=== PATIENT | female | born 1985 | race Caucasian/White ===

== ENCOUNTER 2022-02-17 17:53 | Emergency (ER) | payer BC, SELFPAY ==
[2022-02-17 18:11] VITALS: BP 102/70; PULSE 90; RESP 18; TEMP 36.6; O2SAT 99; BMI 27.2
[2022-02-17] MEDS: 0.9 % SODIUM CHLORIDE 500 ML 500 ML IV (19:06)
--- NOTE | 2022-02-17 19:07 | ED.LOWEXIN ---
HPI - Extremity Injury (Lower) General Chief Complaint: Extremity Pain/Injury, Lower Stated Complaint: Left Foot Numbness, difficulty walking Time Seen by Provider: 02/17/22 18:25 History of Present Illness HPI Narrative: Myla is a 36year old female patient with known history of fibromyalgia who presents emergency department with complaints of left lower extremity weakness, paresthesia, and difficulty walking. The patient reports that she has had the symptoms for approximately 6 weeks. The patient states that she now has symptoms associated with the right lower extremity and bilateral upper extremities. Patient reports that she notes significant weakness, numbness, and decreased strength associated with position changes if she falls asleep with her arms crossed across her chest. Patient states that she has had previous evaluation treatment with group care worker. Patient reports that she has recently moved, and she felt her initial symptoms were secondary to overuse injury versus pinched nerve. After evaluation with a chiropractor, and they recommended further evaluation with primary care. Patient presented to the [facility] for further evaluation and treatment. She denies loss of control of bowel or bladder. She denies URI symptoms. She has not had any recent vaccinations. She denies recent changes in medications. The patient does report history of marijuana use. She denies changes in symptoms associated with substance use. She denies any trauma or injury. Related Data Home Medications Medication Instructions Recorded Confirmed albuterol sulfate 90 mcg/actuation 1 inh inhalation Q4-6H PRN 02/17/22 02/17/22 aerosol inhaler epinephrine 0.3 mg/0.3 mL 0.3 ml IM Q5-15M PRN 02/17/22 02/17/22 injection, auto-injector ondansetron HCl 4 mg tablet 4 mg PO Q6-8H PRN 02/17/22 02/17/22 pantoprazole 40 mg tablet,delayed 40 mg PO DAILY 02/17/22 02/17/22 release Allergies Allergy/AdvReac Type Severity Reaction Status Date / Time bee pollen Allergy Severe Difficulty Verified 02/17/22 21:21 Breathing blackberry Allergy Severe Hives Verified 02/17/22 21:21 peach Allergy Severe Hives Verified 02/17/22 21:21 pomegranate Allergy Severe Hives Verified 02/17/22 21:21 raspberry Allergy Severe Hives Verified 02/17/22 21:21 tree nut Allergy Severe Hives Verified 02/17/22 21:21 Review of Systems Const: Reports: malaise; Denies: fever, chills or fatigue ENMT: Denies: throat pain, ear pain, nasal discharge or nasal congestion Cardio: Denies: chest pain, palpitations, swelling of feet/ankles or shortness of breath with exertion Resp: Denies: shortness of breath or cough GI: Denies: abdominal pain, nausea, vomiting, diarrhea or constipation : Denies: painful urination, urinary frequency, urinary incontinence, vaginal bleeding, vaginal discharge or irregular period Musculo: Reports: back pain (Chronic per patient), limited range of motion, muscle cramps and muscle weakness Integ/Breast: Denies: itching, redness, skin pain, skin tenderness or skin swelling Neuro: Reports: numbness in extremities and weakness in extremities; Denies: headache, difficulty communicating thoughts, seizure-like activity or involuntary movements Endo: Denies: fatigue PFSH PFSH Social History Smoking Status: Never smoker Do you use any of these nicotine containing products: None How often do you have a drink containing alcohol: 2-3 times a week How often do you have six or more drinks on one occasion: Never AUDIT-C Alcohol total score: 3 Non-prescribed substance use: marijuana (any form) Non-prescribed substance use details: delta 10, delta 8 service: No Exam Const: Vital Signs, click to edit/add: Vital Signs - 24 hr 02/17/22 18:11 02/17/22 21:56 Temperature 97.8 F Pulse Rate [Pulse Oximeter] 90 74 Respiratory Rate 18 18 Blood Pressure [Ri ght Upper Arm] 102/70 110/73 Pulse Oximetry 99 99 Oxygen Delivery Me thod Room Air Room Air Documenting provider has reviewed patient's vital signs: yes Common normals: no apparent distress, oriented x3, no limitations, healthy appearing, alert and well nourished General appearance: cooperative, comfortable and well developed; not in distress Orientation/consciousness: Yes awake, Yes oriented to person and Yes oriented to place HENMT: Common normals: normocephalic, head/scalp atraumatic and hearing grossly normal bilaterally Head and scalp: normocephalic and atraumatic Face and sinus: normal facial exam (within limits of masking) Eye: Common normals: PERRL and EOMs intact bilaterally General eye: normal appearance of both eyes Alignment: alignment normal Pupil: PERRL Neck & C-Spine: Common normals: full ROM, no lymphadenopathy and supple Cervical spine: cervical ROM normal; no cervical spine tenderness, no paracervical muscle spasm and Lhermitte's sign negative Resp: Common normals: normal respiratory effort, no retractions, no use of accessory muscles and clear to auscultation bilaterally Effort & inspection: able to speak in complete sentences Auscultation: clear to auscultation bilaterally Cardio: Common normals: regular rate, regular rhythm, S1 normal heart sound and S2 normal heart sound Rate: regular rate Rhythm: regular rhythm Heart sounds: S1 normal and S2 normal GI: Common normals: Normal to inspection, nondistended, normoactive bowel sounds present, soft to palpation and non-tender Palpation: soft Back & Pelvis: Common normals: thoracic and lumbar spine normal to inspection and thoraco-lumbar ROM normal Extremity: Common normals: normal to inspection, full ROM and no clubbing, cyanosis or edema Right lower extremity: lower leg Right lower leg: neurovascular exam (Decreased sensation noted in the L5, S1-2) and special tests Right lower leg special tests: Lino's sign: Negative Neuro: Common normals: oriented x3, moves all extremities, no focal motor deficits and no sensory deficits noted Sensorium/orientation: awake, alert, oriented to person and oriented to place Speech: speech normal Gait (neuro): antalgic Motor exam: strength 5/5 throughout, no fasciculations, no movement abnormalities noted and strength abnormal left distal lower extremity 1 / 5 flexion 1 / 5 and extension 2 / 5 Psych: Common normals: mental status grossly normal, thought process normal, speech normal and activity/motor behavior normal Appearance: grossly normal Attitude: calm Activity/motor behavior: appropriate eye contact Speech: normal speech Thought process: normal thought process Thought content: normal thought content Attention/concentration: attention grossly intact Memory/cognition: memory grossly intact Insight: insight good Judgement: judgment good Skin: Common normals: no rashes or lesions noted General skin exam: no rashes or lesions noted Course Course Hospital Course: Myla presented to the emergency department for further evaluation and treatment of left lower extremity paresthesias and weakness present for approximately 6 weeks. The patient was advised by her chiropractor to follow-up with primary care, however she chose to present to the Urgent Care which referred her to the emergency department. Laboratory studies, imaging, and consultation was performed as noted. She has rested comfortably while she was in the emergency department. Her vital signs have remained stable. See additional note for disposition and plan. Consultations Consultation #1: Dr Seymour called for consultation. Time: 19:07 Vital Signs Vital signs: Initial Vital Signs Temperature 97.8 F 02/17/22 18:11 Temperature Source Temporal Artery Scan 02/17/22 18:11 Pulse Rate 90 02/17/22 18:11 Respiratory Rate 18 02/17/22 18:11 Blood Pressure 102/70 02/17/22 18:11 Blood Pressure Mean 80 02/17/22 18:11 Blood Pressure Position Sitting 02/17/22 18:11 Pulse Oximetry 99 02/17/22 18:11 Oxygen Delivery Method 02/17/22 18:11 Vital Signs Temperature 97.8 F 02/17/22 18:11 Pulse Rate 90 02/17/22 18:11 Respiratory Rate 18 02/17/22 18:11 Blood Pressure 102/70 02/17/22 18:11 Pulse Oximetry 99 02/17/22 18:11 Oxygen Delivery Method 02/17/22 18:11 Temperature 97.8 F 02/17/22 18:11 Pulse Rate 74 02/17/22 21:56 Respiratory Rate 18 02/17/22 21:56 Blood Pressure 110/73 02/17/22 21:56 Pulse Oximetry 99 02/17/22 21:56 Oxygen Delivery Method 02/17/22 21:56 MDM - Extremity Injury (Lower) MDM Narrative Medical decision making narrative: Differential diagnoses considered include: sprain and strain, contusion, nerve root entrapment, radiculopathy, muscle spasm, dislocation, and fracture. Other differentials include ligament or tendon injury/damage, neuromuscular disease, vascular or nerve damage. Lab Data Attestation: I reviewed the patient's lab results. Labs: Lab Results 02/17/22 02/17/22 02/17/22 Range/Units 19:05 19:05 19:05 WBC 9.50 (4.50-11.00) K/uL RBC 4.57 (4.00-5.20) m/uL Hgb 14.0 (12.0-16.0) gm/dL Hct 42.2 (33.0-51.0) % MCV 92 (80-100) fL MCH 31 (26-34) pg MCHC 33 (32-36) gm/dL RDW Coeff of Oscar 12.7 (11.5-15.5) % Plt Count 286 (140-440) K/uL Neut % (Auto) 73.6 H (42.0-72.0) % Lymph % (Auto) 15.6 L (20-44) % Armstrong % (Auto) 8.0 (0.0-11.0) % Eos % (Auto) 2.4 (0.0-7.0) % Baso % (Auto) 0.3 (0.0-3.0) % Neut # (Auto) 7.00 (1.7-7.0) K/uL Lymph # (Auto) 1.50 (0.90-2.90) K/uL Armstrong # (Auto) 0.80 (0.00-0.90) K/UL Eos # (Auto) 0.23 (0.00-0.50) K/uL Baso # (Auto) 0.03 (0.00-0.30) K/uL Abs Immat Gran (auto) 0.01 (0.00-0.30) K/uL Sodium 140 (135-149) mmol/L Potassium 3.9 (3.6-5.1) mmol/L Chloride 106 (96-114) mmol/L Carbon Dioxide 24 (20-32) mmol/L BUN 12 (5-24) mg/dL Creatinine 0.4 L (0.5-1.5) mg/dL Estimated Creat Clear 207.10 Estimated GFR 133 ml/min Glucose 86 (60-115) mg/dL Calcium 9.3 (8.4-10.6) mg/dL Magnesium 2.1 (1.5-2.6) mg/dL Total Bilirubin 0.3 (0.1-1.5) mg/dL AST 23 (12-35) U/L ALT 18 (4-35) U/L Alkaline Phosphatase 77 (40-150) U/L Total Creatine Kinase (41-117) U/L Total Protein 7.6 (6.0-8.3) g/dL Albumin 4.5 (3.3-5.0) g/dL Vitamin B12 337 (243-894) pg/mL 25-OH Vitamin D Total 51 (30-80) ng/mL Urine Color (Yellow) Urine Appearance (Clear) Urine pH (5.0-8.5) Ur Specific [place] (1.000-1.030) Urine Protein (Negative) Urine Glucose (UA) (Negative) Urine Ketones (Negative) Urine Blood (Negative) Urine Nitrite (Negative) Urine Bilirubin (Negative) Urine Urobilinogen (0.2-1.0) Ur Leukocyte Esterase (Negative) Urine Opiates Screen (Negative) Ur Oxycodone Screen (Negative) Urine Methadone Screen (Negative) Ur Propoxyphene Screen (Negative) Ur Barbiturates Screen (Negative) U Tricyclic Antidepress (Negative) Ur Phencyclidine Scrn (Negative) Ur Amphetamines Screen (Negative) U Methamphetamines Scrn (Negative) U Benzodiazepines Scrn (Negative) Urine Cocaine Screen (Negative) U Marijuana (THC) Screen (Negative) Ur Drug Screen Comment 02/17/22 02/17/22 02/17/22 Range/Units 19:05 19:55 19:55 WBC (4.50-11.00) K/uL RBC (4.00-5.20) m/uL Hgb (12.0-16.0) gm/dL Hct (33.0-51.0) % MCV (80-100) fL MCH (26-34) pg MCHC (32-36) gm/dL RDW Coeff of Oscar (11.5-15.5) % Plt Count (140-440) K/uL Neut % (Auto) (42.0-72.0) % Lymph % (Auto) (20-44) % Armstrong % (Auto) (0.0-11.0) % Eos % (Auto) (0.0-7.0) % Baso % (Auto) (0.0-3.0) % Neut # (Auto) (1.7-7.0) K/uL Lymph # (Auto) (0.90-2.90) K/uL Armstrong # (Auto) (0.00-0.90) K/UL Eos # (Auto) (0.00-0.50) K/uL Baso # (Auto) (0.00-0.30) K/uL Abs Immat Gran (auto) (0.00-0.30) K/uL Sodium (135-149) mmol/L Potassium (3.6-5.1) mmol/L Chloride (96-114) mmol/L Carbon Dioxide (20-32) mmol/L BUN (5-24) mg/dL Creatinine (0.5-1.5) mg/dL Estimated Creat Clear Estimated GFR ml/min Glucose (60-115) mg/dL Calcium (8.4-10.6) mg/dL Magnesium (1.5-2.6) mg/dL Total Bilirubin (0.1-1.5) mg/dL AST (12-35) U/L ALT (4-35) U/L Alkaline Phosphatase (40-150) U/L Total Creatine Kinase 38 L (41-117) U/L Total Protein (6.0-8.3) g/dL Albumin (3.3-5.0) g/dL Vitamin B12 (243-894) pg/mL 25-OH Vitamin D Total (30-80) ng/mL Urine Color Yellow (Yellow) Urine Appearance Clear (Clear) Urine pH 5.5 (5.0-8.5) Ur Specific [place] 1.020 (1.000-1.030) Urine Protein Negative (Negative) Urine Glucose (UA) Negative (Negative) Urine Ketones Negative (Negative) Urine Blood Negative (Negative) Urine Nitrite Negative (Negative) Urine Bilirubin Negative (Negative) Urine Urobilinogen 0.2 (0.2-1.0) Ur Leukocyte Esterase Negative (Negative) Urine Opiates Screen Negative (Negative) Ur Oxycodone Screen Negative (Negative) Urine Methadone Screen Negative (Negative) Ur Propoxyphene Screen Negative (Negative) Ur Barbiturates Screen Negative (Negative) U Tricyclic Antidepress Negative (Negative) Ur Phencyclidine Scrn Negative (Negative) Ur Amphetamines Screen Negative (Negative) U Methamphetamines Scrn Negative (Negative) U Benzodiazepines Scrn Negative (Negative) Urine Cocaine Screen Negative (Negative) U Marijuana (THC) Screen POSITIVE A* (Negative) Ur Drug Screen Comment See Note Discharge Plan Discharge Clinical Impression: Paresthesia and pain of left extremity Patient Disposition: Home, Self-Care Condition: Stable Instructions: Paresthesia (ED) Additional Instructions: Thank you for choosing [facility] for your care today. Use RICE - rest, ice, compression, and elevation - as needed for symptom control. I recommend following up with your primary physician in 1-2wks if a significant improvement of symptoms is not noted. Continue routine activity as tolerated. You may consider topical medications including capsaicin or lidocaine patches to assist with symptom control. If new or worsening symptoms develop or you have any concerns in the meantime, please call your primary care clinic or return to the ER for re-evaluation. Activity Level: No Restrictions and Activity as Tolerated Discharge Diet: Regular Prescriptions: No Action pantoprazole 40 mg tablet,delayed release (DR/EC) 40 mg PO DAILY ondansetron HCl 4 mg tablet 4 mg PO Q6-8H PRN albuterol sulfate 90 mcg/actuation HFA aerosol inhaler 1 inh inhalation Q4-6H PRN epinephrine 0.3 mg/0.3 mL auto-injector 0.3 ml IM Q5-15M PRN Rx Instructions: do not exceed 3 doses per episode Follow Up/Referrals: Provider,Not a Local [Primary Care Provider] - Stand Alone Forms: [facility] Info Instructions
[2022-02-17 19:17] LABS: Basophils Absolute Auto 0.03 K/uL (0.00-0.30); Basophils Percent Auto 0.3 % (0.0-3.0); Eosinophils Absolute Auto 0.23 K/uL (0.00-0.50); Eosinophils Percent Auto 2.4 % (0.0-7.0); Hematocrit 42.2 % (33.0-51.0); Immature Granulocytes Abs Auto 0.01 K/uL (0.00-0.30); Lymphocytes Percent Auto 15.6 % (20-44); Mean Corpuscular HGB Conc 33 gm/dL (32-36); Mean Corpuscular Hemoglobin 31 pg (26-34); Mean Corpuscular Volume 92 fL (80-100); Neutrophils Percent Auto 73.6 % (42.0-72.0); Platelet Count* 286 K/uL (140-440); RDW Coefficient of Variation % 12.7 % (11.5-15.5); Red Blood Count 4.57 m/uL (4.00-5.20)
--- NOTE | 2022-02-17 19:20 | CRLHL7_ITS ---
For Patients: As a result of the Century Cures Act, medical imaging exams and procedure reports are released immediately into your electronic medical record. You may view this report before your referring provider. If you have questions, please contact your health care provider. DATE: 02/17/2022. CLINICAL HISTORY: Paresthesias/weakness. TECHNIQUE: Multiplanar, multi-sequence MRI examination of the cervical spine was performed. Contrast: 20mL of Dotarem administered intravenously. COMPARISON: None available. FINDINGS: No acute fracture, traumatic malalignment, or acute ligamentous injury of the cervical spine. Vertebral body heights are maintained without evidence of compression deformity. The craniocervical junction is within normal limits. The cervical cord is normal in signal and morphology. Anatomic alignment of the cervical spine. No pathologic enhancement of the osseous structures or within the spinal canal. C2-3: No significant spinal canal stenosis or foraminal narrowing. C3-4: No significant spinal canal stenosis or foraminal narrowing. C4-5: Very mild disc bulge. No significant spinal canal stenosis or foraminal narrowing. C5-6: Right central/lateral recess disc protrusion indents the right lateral ventral thecal sac. No significant spinal canal stenosis or foraminal narrowing. C6-7: No significant spinal canal stenosis or foraminal narrowing. C7-T1: No significant spinal canal stenosis or foraminal narrowing. IMPRESSION: 1. Anatomic alignment of the cervical spine. 2. Normal appearance of the cervical cord. 3. At C5-6, right central/lateral recess disc protrusion and at C4-C5, very mild disc bulge. 4. No significant spinal canal stenosis or foraminal narrowing throughout the cervical spine. Dictated by Get Jones MD @ 02/17/2022 11:10:17 PM (Electronically Signed)
--- NOTE | 2022-02-17 19:20 | CRLHL7_ITS ---
For Patients: As a result of the Century Cures Act, medical imaging exams and procedure reports are released immediately into your electronic medical record. You may view this report before your referring provider. If you have questions, please contact your health care provider. DATE: 02/17/2022. CLINICAL HISTORY: Paresthesias; weakness. TECHNIQUE: Multiplanar, multi-sequence MRI examination of the lumbar spine was performed. Contrast: 20mL of Dotarem was administered intravenously. COMPARISON: None available. FINDINGS: No acute fracture, traumatic malalignment, or acute ligamentous injury involving the lumbar spine. Vertebral body heights are maintained without evidence of compression deformity. L4 vertebral body hemangioma. No evidence of aggressive osseous lesion. The conus medullaris is within normal limits. There is preservation of lumbar lordosis. No pathologic enhancement involving the osseous structures or the spinal canal. T12-L1: No significant spinal canal stenosis or foraminal narrowing. L1-2: No significant spinal canal stenosis or foraminal narrowing. L2-3: No significant spinal canal stenosis or foraminal narrowing. L3-4: No significant spinal canal stenosis or foraminal narrowing. L4-5: No significant spinal canal stenosis or foraminal narrowing. L5-S1: No significant spinal canal stenosis or foraminal narrowing. The visualized prevertebral soft tissues are unremarkable. IMPRESSION: Normal MRI of the lumbar spine. No evidence of significant spinal canal stenosis or foraminal narrowing. Dictated by Get Jones MD @ 02/17/2022 10:03:49 PM (Electronically Signed)
--- NOTE | 2022-02-17 19:20 | CRLHL7_ITS ---
For Patients: As a result of the Century Cures Act, medical imaging exams and procedure reports are released immediately into your electronic medical record. You may view this report before your referring provider. If you have questions, please contact your health care provider. DATE: 02/17/2022. CLINICAL HISTORY: Paresthesias/weakness. TECHNIQUE: Multiplanar, multi-sequence MRI examination of the thoracic spine was performed. Contrast: 20mL of Dotarem administered intravenously. COMPARISON: None available. FINDINGS: No acute fracture, traumatic malalignment, or acute ligamentous injury of the thoracic spine. Vertebral body heights are maintained. No evidence of aggressive osseous lesion. The thoracic cord is normal in signal and morphology. There is preservation of normal thoracic kyphosis. At T11-T12, there is mild anterior endplate osteophytosis. No evidence of pathologic enhancement involving the osseous structures of the spinal canal. No evidence of significant spinal canal stenosis or foraminal narrowing. The paravertebral soft tissues are within normal limits. IMPRESSION: Essentially normal MRI of the thoracic spine. Normal appearance of the thoracic cord and no evidence of significant spinal canal stenosis. Dictated by Get Jones MD @ 02/17/2022 10:08:28 PM (Electronically Signed)
[2022-02-17 19:25] LABS: Slide Review Reflex No
[2022-02-17 19:30] LABS: Albumin* 4.5 g/dL (3.3-5.0); Chloride* 106 mmol/L (96-114)
[2022-02-17 19:31] LABS: Potassium* 3.9 mmol/L (3.6-5.1); Sodium* 140 mmol/L (135-149)
[2022-02-17 19:33] LABS: Alkaline Phosphatase* 77 U/L (40-150); Aspartate Amino Transferase* 23 U/L (12-35); Bilirubin Total* 0.3 mg/dL (0.1-1.5); Blood Urea Nitrogen* 12 mg/dL (5-24); Carbon Dioxide* 24 mmol/L (20-32); Creatinine* 0.4 mg/dL (0.5-1.5); Estimated Glomerular Filt Rate 133 ml/min; Total Protein* 7.6 g/dL (6.0-8.3)
[2022-02-17 19:34] LABS: Calcium* 9.3 mg/dL (8.4-10.6); Glucose* 86 mg/dL (60-115); Magnesium* 2.1 mg/dL (1.5-2.6)
[2022-02-17 19:44] LABS: Creatine Kinase* 38 U/L (41-117)
[2022-02-17 19:49] LABS: Alanine Aminotransferase* 18 U/L (4-35)
[2022-02-17 20:02] LABS: Vitamin D 25 Hydroxy* 51 ng/mL (30-80)
[2022-02-17 20:12] LABS: Appearance Urine Clear (Clear); Bilirubin Urine Negative (Negative); Blood Urine Negative (Negative); Color Urine Yellow (Yellow); Glucose Urine Negative (Negative); Ketones Urine Negative (Negative); Leukocyte Esterase Urine Negative (Negative); Nitrite Urine Negative (Negative); Protein Urine Negative (Negative); Urobilinogen Urine 0.2 (0.2-1.0); pH Urine 5.5 (5.0-8.5)
[2022-02-17 20:13] LABS: Amphetamine Screen Urine Negative (Negative); Barbiturate Screen Urine Negative (Negative); Benzodiazepines Screen Urine Negative (Negative); Cocaine Screen Urine Negative (Negative); Methadone Screen Urine Negative (Negative); Methamphetamines Screen Urine Negative (Negative); Opiate Screen Urine Negative (Negative); Oxycodone Screen Urine Negative (Negative); Phencyclidine Screen Urine Negative (Negative); Tricyclic Antidepressant Urine Negative (Negative)
[2022-02-17 20:22] LABS: Vitamin B12* 337 pg/mL (243-894)
[2022-02-17 20:26] LABS: Cannabinoid Screen Urine POSITIVE (Negative)
[2022-02-17 21:56] VITALS: BP 110/73; PULSE 74; RESP 18; O2SAT 99
[2022-02-22 10:20] LABS: Vitamin B1, Whole Blood 90 nmol/L (70-180)
== END 2022-02-17 22:50 | disposition home or self-care (01) ==
PROVIDERS: Emergency Provider Family Medicine
DX: R20.0 Anesthesia of skin (principal); M79.605 Pain in left leg; M79.7 Fibromyalgia
CPT/HCPCS: 36415; 72156; 72157; 72158; 80053; 80306; 81003; 82306; 82525; 82550; 82607; 83735; 84425; 85025; 86618; 99284; 99285; A9575; J7120

== ENCOUNTER 2024-05-07 10:46 | Day surgery (SDC) | payer BC, SELFPAY ==
[2024-05-07 10:51] VITALS: BP 128/81; PULSE 65; RESP 16; TEMP 36.4; O2SAT 100; BMI 25.8
--- NOTE | 2024-05-07 11:09 | ED.ABDPAIN ---
HPI - Abdominal Pain General Time Seen by Provider: 11:09 Date Seen: 05/07/24 Chief Complaint: Abdominal Pain Stated Complaint: abdominal discomfort Time Seen by Provider: 05/07/24 11:08 Source: patient and RN notes reviewed Mode of arrival: ambulatory Limitations: no limitations History of Present Illness HPI narrative: This 38-year-old female is coming in with complaint of abdominal pain. Symptoms have been progressive over a a week or so. It is in the epigastric area, has started radiating out into her lower abdomen. She has had increased nausea, does of Zofran, took her last dose at 9:00 a.m. today. When she eats or drinks liquids, she states she can almost feel it hit her stomach and the pain will intensify. She has noted no change in bowel habits such as diarrhea or change in color or dark tarry stools. Her intake is diminished due to the symptoms. She has a history of eosinophilic esophagitis and takes Protonix for this, she will get nausea with her eosinophilic esophagitis but feels over the last year and half that that is been pretty stable. She will feel more esophageal or chest symptoms, states with that she will have nausea but also feels like food gets stuck in difficulty swallowing. She has a burning sensation in her chest with that. She had a gastric bypass in [place], she told me 2017, nurse's note states February of 2021. She believes it was a Rikki-en-Y gastric bypass. She believes her gallbladder is still in. She does not think that this is her gallbladder, before her bypass she states she had an episode where was maybe her gallbladder in felt different. No fevers or chills. She has noted that the pain in the epigastric area is worsening with movement now. She was at work this morning, had increasing pain with movement. Patient feels is unlikely that there is a chance for , we agreed on confirmation of status. Related Data Home Medications ?Medication ?Instructions ?Recorded ?Confirmed epinephrine 0.3 mg/0.3 mL 0.3 ml IM Q5-15M PRN 02/17/22 05/07/24 injection, auto-injector ondansetron HCl 4 mg tablet 4 mg PO Q6-8H PRN 02/17/22 05/07/24 pantoprazole 40 mg tablet,delayed 40 mg PO DAILY PRN 02/17/22 05/07/24 release gabapentin 100 mg capsule 100 mg PO TID PRN 08/06/22 05/07/24 buspirone 5 mg tablet 5 mg PO BID PRN 10/30/23 05/07/24 lorazepam 0.5 mg tablet 0.5 - 1 mg PO DAILY PRN 10/30/23 05/07/24 cetirizine 10 mg tablet (All Day 10 mg PO DAILY 05/07/24 05/07/24 Allergy (cetirizine)) fluticasone propionate 50 1 spray intranasal BID PRN 05/07/24 05/07/24 mcg/actuation nasal spray,suspension (24 Hour Allergy Relief) multivitamin (Daily Multi-Vitamin 1 tab PO DAILY 05/07/24 05/07/24 tablet) prazosin 1 mg capsule 1 mg PO HS PRN 05/07/24 05/07/24 sertraline 50 mg tablet 50 mg PO DAILY 05/07/24 05/07/24 trazodone 50 mg tablet 50 mg PO HS PRN 05/07/24 05/07/24 Previous Rx's ?Medication ?Instructions ?Recorded albuterol sulfate 90 mcg/actuation 2 puff inhalation Q6H PRN 04/25/23 aerosol inhaler shortness of breath or wheezing #6.7 grams Allergies Allergy/AdvReac Type Severity Reaction Status Date / Time bee pollen Allergy Severe Difficulty Verified 05/07/24 12:19 Breathing blackberry Allergy Severe Hives Verified 05/07/24 12:19 peach Allergy Severe Hives Verified 05/07/24 12:19 pomegranate Allergy Severe Hives Verified 05/07/24 12:19 raspberry Allergy Severe Hives Verified 05/07/24 12:19 tree nut Allergy Severe Hives Verified 05/07/24 12:19 Review of Systems Status of ROS Reports: 6 or more systems reviewed and unremarkable except as noted in History and below [facility] Medical History (Updated 05/07/24 @ 17:29 by Myla Pacheco MD) Anxiety ?F41.9 - Anxiety disorder, unspecified (ICD-10) Eosinophilic esophagitis ?K20.0 - Eosinophilic esophagitis (ICD-10) Surgical History (Updated 05/07/24 @ 17:30 by Myla Pacheco MD) H/O wisdom tooth extraction ?K08.409 - Partial loss of teeth, unspecified cause, unspecified class (ICD-10) S/P gastric bypass ?Z98.84 - Bariatric surgery status (ICD-10) Social History What is your current living situation?: I presently have a place to live Problems where you live: no known problems Problems where you live details: N/A In the past 12 months, utilities in danger of being shut off: no In the past 12 mos, have been you worried that your food would run out before you had money to buy more?: never true In the past 12 mos, the food you bought just didn't last and you didn't have money to buy more?: never true Smoking Status: Current some day smoker What tobacco products do you use: cigarettes Do you use any of these nicotine containing products: None How often do you have a drink containing alcohol: 2-4 times a month Alcohol type: beer, wine and hard liquor How many standard drinks containing alcohol do you have on a typical day: 1 or 2 How often do you have six or more drinks on one occasion: Less than monthly AUDIT-C Alcohol total score: 3 Non-prescribed substance use: marijuana (any form) Non-prescribed substance use details: sometimes uses marijuana, not daily Caffeine: Yes How often does anyone, including family, friends and others, physically hurt you: never How often does anyone, including family, friends and others, insult or talk down to you: never How often does anyone, including family, friends and others, threaten you with harm: never How often does anyone, including family, friends and others, scream or curse at you: never service: No Exam Const: Vital Signs, click to edit/add: Vital Signs - 24 hr 05/07/24 10:51 05/07/24 13:21 Temperature 97.5 F L 97.3 F L Pulse Rate [Pulse Oximeter] 65 51 L Respiratory Rate 16 18 Blood Pressure [Ri ght Upper Arm] 128/81 110/69 Pulse Oximetry 100 99 Oxygen Delivery Me thod Room Air Room Air This 38-year-old female is alert, interactive, no apparent distress. She appears to be comfortable, lying in the bed in exam room 6. Pupils equal round, conjugate gaze, sclera clear. Symmetrical facial function, speech is normal, speaking in complete sentences. Lungs clear, no tachypnea, wheeze or crackles. CV regular rate and rhythm, no murmur, normal S1-S2, no S3-S4. Abdomen is not distended, bowel sounds are present, no rebound or guarding, no organomegaly, no masses. She states where she has the pain is in the epigastric area but she really is not significantly tender on examination at this time. Skin visualized without rash. Patient was ambulatory into the ED of her own accord. Documenting provider has reviewed patient's vital signs: yes Course Course ED Course: Patient's pain is a bit atypical that it is progressing and worsening with movement. Will discuss with general surgery/Radiology as far as imaging recommendations, think that she should probably have some type of oral contrast if we are going to image to get better visualization of her gastric bypass and possible complications. She will get full complement of labs, will do urinalysis as well and confirm negative status. This could be biliary disease, complication of her gastric bypass such as ulceration along the anastomosis, possible breakdown of the anastomosis, other complications of gastric bypass, possibly some pancreatitis. Will undertake full complement of labs and need to consider imaging. Reevaluation(s) Time of Reevaluation #1: 13:20 Reevaluation #1: Reviewed patient's CT with her. The gallbladder is distended but there is no evidence on CT of cholecystitis. Her labs are all reassuring we normal, normal lipase, normal liver functions. She would like to proceed with ultrasound of her gallbladder. She does understand that if this is normal, does not necessarily rule out biliary dysfunction. If her gallbladder ultrasound is not showing anything concerning, she understands that she may need to follow up in clinic and get scheduled for further potential test such as HIDA scan to look for biliary dysfunction and consideration of an EGD. At this time, there is no surgical abdomen, no definite identifiable pathology. Time of Reevaluation #2: 13:44 Reevaluation #2: Have reviewed with patient that her ultrasound per the pickling solution maker is showing multiple mobile gallstones. She certainly has some features that seem consistent with gallstone pathology but the physical symptoms of pain increasing with activity, increased pain with lifting do not seem to be consistent with that. She had a small hiatal hernia on her CT which we did review. She states she does not think she has had that before. Reviewed with her that that really would not be consistent with something causing symptoms of this nature from my experience. Typically would cause more symptoms like heartburn or regurgitant issues. Most people do not have significant problems with a small hiatal hernia. I reviewed with her it is essentially a small portion the stomach going through the diaphragm. I reviewed with her my conversation with the general surgeon Dr. Pacheco. Dr. Cruz does think that if she is symptomatic as I am explaining, she would do cholecystectomy, patient could stay overnight. Alternatively, if patient wants to try outpatient management, can send her with pain meds, bland diet, plenty of liquids and see how she does. Patient and I did definitely discuss that there are some features in her history that may not go with gallbladder pathology but her ultrasound is showing multiple mobile gallstones. She needs some time to make some phone calls and consider her options. Time of Reevaluation #3: 14:13 Reevaluation #3: Have reviewed with the patient the formal ultrasound report. She really is not even tolerating liquids anymore at home without pain. We will have her stay. She would like to have her gallbladder out. I have subsequently talked to Dr. Pacheco whom would like the hospitalist to follow, initiate Carafate and PPI, I did order 40 mg IV Protonix at that point. She wants to see if that will help her symptoms at all. Plan will be for cholecystectomy tomorrow afternoon otherwise. I did subsequently speak with hospitalist Jada Rae whom accepts. Consultations Consultation #1: Have reviewed with general surgery as well as our radiologist. Plan will be to give her a water-based oral contrast with IV contrast so that the stomach remnant or gastric bypass sites can be sufficiently visualized. May need to consider ultrasound based on labs or if there is any evidence of biliary issues on her CT. Time: 11:34 Vital Signs Vital signs: Initial Vital Signs Temperature 97.5 F L 05/07/24 10:51 Temperature Source Temporal Artery Scan 05/07/24 10:51 Pulse Rate 65 05/07/24 10:51 Respiratory Rate 16 05/07/24 10:51 Blood Pressure 128/81 05/07/24 10:51 Blood Pressure Mean 96 05/07/24 10:51 Blood Pressure Position Sitting 05/07/24 10:51 Pulse Oximetry 100 05/07/24 10:51 Oxygen Delivery Method Room Air 05/07/24 10:51 Vital Signs Temperature 97.5 F L 05/07/24 10:51 Pulse Rate 65 05/07/24 10:51 Respiratory Rate 16 05/07/24 10:51 Blood Pressure 128/81 05/07/24 10:51 Pulse Oximetry 100 05/07/24 10:51 Oxygen Delivery Method Room Air 05/07/24 10:51 Temperature 97.9 F 05/07/24 14:52 Pulse Rate 60 05/07/24 14:52 Respiratory Rate 18 05/07/24 14:52 Blood Pressure 119/80 05/07/24 14:52 Pulse Oximetry 100 05/07/24 14:52 Oxygen Delivery Method Room Air 05/07/24 14:52 Medications Administered Medications: Discontinued Medications Generic Name Dose Route Start Last Admin Trade Name Freq PRN Reason Stop Dose Admin Pantoprazole Sodium 40 mg 05/07/24 14:15 05/07/24 14:24 Pantoprazole Sodium 40 Mg Inj IVP 05/07/24 14:16 40 mg ONCE ONE Administration MDM - Abdominal Pain Lab Data Attestation: I reviewed the patient's lab results. Labs: Lab Results 05/07/24 05/07/24 Range/Units 11:27 11:45 WBC 6.28 (4.50-11.00) K/uL RBC 4.34 (4.00-5.20) m/uL Hgb 12.4 (12.0-16.0) gm/dL Hct 38.1 (33.0-51.0) % MCV 88 (80-100) fL MCH 29 (26-34) pg MCHC 33 (32-36) gm/dL RDW Coeff of Oscar 13.8 (11.5-15.5) % Plt Count 284 (140-440) K/uL Neut % (Auto) 70.8 (42.0-72.0) % Lymph % (Auto) 18.9 L (20-44) % [place] % (Auto) 8.0 (0.0-11.0) % Eos % (Auto) 1.8 (0.0-7.0) % Baso % (Auto) 0.3 (0.0-3.0) % Neut # (Auto) 4.45 (1.7-7.0) K/uL Lymph # (Auto) 1.20 (0.90-2.90) K/uL [place] # (Auto) 0.50 (0.00-0.90) K/UL Eos # (Auto) 0.11 (0.00-0.50) K/uL Baso # (Auto) 0.02 (0.00-0.30) K/uL Abs Immat Gran (auto) 0.01 (0.00-0.30) K/uL Imm/Tot Granulo (auto) 0.2 % Sodium 136 (135-149) mmol/L Potassium 4.0 (3.6-5.1) mmol/L Chloride 100 (96-114) mmol/L Carbon Dioxide 26 (20-32) mmol/L Anion Gap 10 (7-15) mEq/L BUN 9 (5-24) mg/dL Creatinine 0.4 L (0.5-1.5) mg/dL Estimated Creat Clear 203.20 Estimated GFR 131 ml/min Glucose 89 (60-115) mg/dL Lactate 0.7 (0.5-1.9) mmol/L Calcium 9.6 (8.4-10.6) mg/dL Total Bilirubin 0.4 (0.1-1.5) mg/dL Direct Bilirubin 0.3 (0.0-0.5) mg/dL AST 26 (12-35) U/L ALT 14 (4-35) U/L Alkaline Phosphatase 54 (40-150) U/L C-Reactive Protein < 0.5 L (0.5-1.0) mg/dL Total Protein 7.9 (6.0-8.3) g/dL Albumin 4.9 (3.3-5.0) g/dL Lipase 75 (23-300) U/L Urine Color Yellow (Yellow) Urine Appearance Clear (Clear) Urine pH 7.0 (5.0-8.5) Ur Specific [place] 1.010 (1.000-1.030) Urine Protein Negative (Negative) Urine Glucose (UA) Negative (Negative) Urine Ketones Negative (Negative) Urine Blood Negative (Negative) Urine Nitrite Negative (Negative) Urine Bilirubin Negative (Negative) Urine Urobilinogen 0.2 (0.2-1.0) Ur Leukocyte Esterase Negative (Negative) Urine RBC 0-2 (0-2) Urine WBC 0-2 (0-5) Ur Squamous Epith Cells None (None-Few) Urine Bacteria None (None) Urine HCG, Qual Negative (Negative) Imaging Data CT scan - abdomen: Attestation: I have reviewed the pertinent imaging results. Radiologist's impression: Patient: MYLA PATTON Facility:?[facility] Patient ID:?[id number] Site Patient ID:?[id number]. Site :?[id number] Study:?CT-Abdomen/Pelvis WITH 85 CC ISOVUE 370-05/07/2024 12:18:26 PM Ordering Physician:?Keegan Faye Final Report: INDICATION: EPIGASTRIC PAIN, NAUSEA, HISTORY OF GASTRIC BYPASS, PAIN WHEN LIFTING AND WHEN FOOD IS IN STOMACH. TECHNIQUE: CT abdomen and pelvis acquired with 100 cc Omnipaque 350 IV contrast. COMPARISON: None. FINDINGS: Lower chest: Unremarkable. Liver: Unremarkable. Normal in size and attenuation. No suspicious masses. Gallbladder and bile ducts: Gallbladder is distended. No radiopaque gallstones identified. No intra or extrahepatic biliary dilatation. Pancreas: Unremarkable. No mass or inflammation. Spleen: Unremarkable. Normal in size. No masses. Adrenal glands: Unremarkable. No nodules. Kidneys: Unremarkable. No suspicious masses, stones, or hydronephrosis. GI tract: Post surgical changes from gastric bypass. No bowel obstruction. Small hiatal hernia. Appendix not visualized. Vasculature: Abdominal aorta is normal in caliber. Mesenteric arteries are patent. Lymph nodes: No lymphadenopathy. Peritoneum/Abdominal Wall: Unremarkable. No sign of mass or infiltration. No free air or significant free fluid. Pelvis: Unremarkable. Bones: Unremarkable for age. IMPRESSION: 1. postsurgical changes from gastric bypass. Small hiatal hernia. Otherwise no evidence of bowel obstruction or other acute process in the abdomen. 2. Gallbladder is distended without additional evidence for cholecystitis. No radiopaque gallstones identified. Please note that all CT scans at this facility use dose modulation, iterative reconstruction, and/or weight-based dosing when appropriate to reduce radiation dose to as low as reasonably achievable. Dictated by Bonilla Heck MD @ 05/07/2024 12:49:03 PM (Electronic Signature) US - abdomen: Attestation: I have reviewed the pertinent imaging results. Radiologist's impression: Patient: MYLA PATTON Facility:?[facility] Patient ID:?[id number] Site Patient ID:?[id number]. Site :?[id number] Study:?US-Abdomen Gallbladder limited-05/07/2024 1:54:33 PM Ordering Physician:Richar Faye Final Report: INDICATION: Epigastric pain TECHNIQUE: Ultrasound abdomen limited. Sonographic images of the right upper quadrant were obtained using chambers-scale and color Doppler images. COMPARISON: None. FINDINGS: Gallbladder: Cholelithiasis. Normal wall thickness. No pericholecystic fluid. Positive sonographic Foster`s sign. Common bile duct: 4 mm. IMPRESSION: Cholelithiasis without evidence of gallbladder wall thickening or pericholecystic fluid to suggest cholecystitis. Sonographic Foster`s sign is positive. Dictated by Reena Mahoney MD @ 05/07/2024 2:02:07 PM (Electronic Signature) Discharge Plan Discharge Clinical Impression: Epigastric abdominal pain, Cholelithiasis Patient Disposition: Admitted As Observation
--- NOTE | 2024-05-07 11:31 | CRLHL7_ITS ---
For Patients: As a result of the Century Cures Act, medical imaging exams and procedure reports are released immediately into your electronic medical record. You may view this report before your referring provider. If you have questions, please contact your health care provider. INDICATION: EPIGASTRIC PAIN, NAUSEA, HISTORY OF GASTRIC BYPASS, PAIN WHEN LIFTING AND WHEN FOOD IS IN STOMACH. TECHNIQUE: CT abdomen and pelvis acquired with 100 cc Omnipaque 350 IV contrast. COMPARISON: None. FINDINGS: Lower chest: Unremarkable. Liver: Unremarkable. Normal in size and attenuation. No suspicious masses. Gallbladder and bile ducts: Gallbladder is distended. No radiopaque gallstones identified. No intra or extrahepatic biliary dilatation. Pancreas: Unremarkable. No mass or inflammation. Spleen: Unremarkable. Normal in size. No masses. Adrenal glands: Unremarkable. No nodules. Kidneys: Unremarkable. No suspicious masses, stones, or hydronephrosis. GI tract: Post surgical changes from gastric bypass. No bowel obstruction. Small hiatal hernia. Appendix not visualized. Vasculature: Abdominal aorta is normal in caliber. Mesenteric arteries are patent. Lymph nodes: No lymphadenopathy. Peritoneum/Abdominal Wall: Unremarkable. No sign of mass or infiltration. No free air or significant free fluid. Pelvis: Unremarkable. Bones: Unremarkable for age. IMPRESSION: 1. postsurgical changes from gastric bypass. Small hiatal hernia. Otherwise no evidence of bowel obstruction or other acute process in the abdomen. 2. Gallbladder is distended without additional evidence for cholecystitis. No radiopaque gallstones identified. Please note that all CT scans at this facility use dose modulation, iterative reconstruction, and/or weight-based dosing when appropriate to reduce radiation dose to as low as reasonably achievable. Dictated by Bonilla Heck MD @ 05/07/2024 12:49:03 PM (Electronically Signed)
[2024-05-07 11:38] LABS: Lactate* 0.7 mmol/L (0.5-1.9)
--- OUTSIDE RECORDS SUMMARY | 2024-05-07 11:47 | XMS_ITS | Encounter Summary ---
Author Organization [facility] Address [address] [place] [address] Care Team Providers Care Engineering Document Control Clerk Name Role Phone No Ref-Primary, Physician Primary Care Provider Reason for Visit * Reason Comments Alcohol Intoxication Encounter Details Date Type Department Care Team (Late st Contact Info) Description 02/09/2024 3:41 AM CDT - 02/09/2024 6:34 AM CDT Emergency [facility] Emergency Dept [address] [place] [address] Agusto Johnson MD [facility] [address] [place] [address] Alcoholic intoxication without complication (H) Discharge Disposition: Home or Self Care Social History Tobacco Use Types Packs/Day Years Used Date Smoking Tobacco: Never Assessed Adolescent Education Answer Date Record ed Getting School Help Needed Not on file 03/21 Comments Unknown Sex and Gender Information Value Date Recorded Sex Assigned at Not on file Legal Sex Female 8:23 AM CDT Gender Identity Not on file Sexual Orientation Not on file documented as of this encounter Last Filed Vital Signs Vital Sign Reading Time Taken Comments Blood Pressure 127/83 02/09/2024 3:50 AM CDT Pulse 88 02/09/2024 3:50 AM CDT Temperature 36.6 ??C (97.8 ??F) 02/09/2024 3:52 AM CD T Respiratory Rate 20 02/09/2024 4:03 AM CDT Oxygen Saturation 98% 02/09/2024 3:52 AM CDT Inhaled Oxygen Concentration - - Weight - - Height - - Body Mass Index - - documented in this encounter Discharge Instructions * Discharge Instructions* Agusto Johnson MD - 02/09/2024 6:19 AM CDT Discharge Instructions Alcohol Intoxication You have been seen today with alcohol intoxication. This means that you have enough alcohol in yoursystem to impair your ability to mentally and physically function, perhaps to the extent that you were unable to care for yourself. Generally, every Emergency Department visit should have a follow-up clinic visit with either a primary or a specialty clinic/provider. Please follow-up as instructed by your emergency provider today. You may have come to the Emergency Department because of your intoxication, or for another reason, such as because of an injury. No matter what the case is, this visit is a ???red flag?? regarding alcohol use, and you should consider whether your drinking pattern is a problem for you. You may be at risk for alcohol-related problems if: Men: you drink more than 14 drinks per week, or more than 4 drinks per occasion. Women: you drink more than 7 drinks per week or more than 3 drinks per occasion. You have black-outs. You do things you regret while drinking. You have legal problems because of drinking. You have job problems because of drinking (you call in sick to work because of drinking). CAGE Questions Have you ever felt you should cut down on your drinking? Have people annoyed you by criticizing your drinking? Have you ever felt bad or guilty about your drinking? Have you ever had a drink first thing in the morning to steady your nerves or get rid of a hangover(eye maori liaison adviser)? If you answer yes to any of the CAGE questions, you may have a problem with alcohol. Return to the Emergency Department if: You become shaky or tremble when you try to stop drinking. You have severe abdominal pain (belly pain). You have a seizure or pass out. You vomit (throw up) blood or have blood in your stool. This may be bright red or it may look like black coffee grounds. You become lightheaded or faint. For further help, contact: Your caregiver. Alcoholics Anonymous (AA). [facility] Intergroup: [phone] [facility] Central Office: [phone] A drug or alcohol rehabilitation program. You can get information on alcohol resources and groups by calling the number [phone] or on any phone. Seek medical care if: You have persistent vomiting. You have persistent pain in any part of your body. You do not feel better after a few days. If you were given a prescription for medicine here today, be sure to read all of the information (including the package insert) that comes with your prescription. This will include important information about the medicine, its side effects, and any warnings that you need to know about. The pharmacist who fills the prescription can provide more information and answer questions you may have about the medicine. If you have questions or concerns that the pharmacist cannot address, please call or return to the Emergency Department. Remember that you can always come back to the Emergency Department if you are not able to see your regular doctor in the amount of time listed above, if you get any new symptoms, or if there is anything that worries you. Substance Use Disorder Direct Access Resources It is recommended that you abstain from all mood altering chemicals. Please contact the [facility] support hotline ([phone]) as needed; phones are answered 24 hours a day, 7 days a week. To access substance use treatment you must have a comprehensive assessment completed to begin any treatment program. If uninsured, please contact your county of residence for eligibility screen to substance use disorder evaluation and treatment: [place] - [phone] [facility] [phone] [place] - [phone] [place] - [phone] [facility] [phone] [facility] [phone] [facility] [phone] [facility] [phone] If you have private insurance, call the customer service number on the back of your insurance card to find an in-network substance abuse use disorder assessment. The ideal provider will be a treatment facility, licensed in the state of [place]. Community AILEEN Evaluations: Clients may call their county for a full list of providers - Availability and services listed belo are subject to change, please call the provider to confirm [facility] [address] [place], [address] *Please call the above number to schedule a comprehensive assessment for determination of level of care needs. In person and virtual appointments available Mon-Fri. [facility], [address], First Floor, [address], [place] [address] (next [facility] outpatient lab) Provides bridging services to people with Opiate Use Disorders (OUD) seeking care. This is a front door to Medication Assisted Treatments (MAT), ages 16+ Walk In hours: Sunday-Sunday 9:00am-3:00pm [facility] [phone] Walk in Assessments: Sun-Sunday 7a-1:45p 24[address] [facility], [address] [facility] Recovery - People [facility] Central Access [phone] [address] [place], [address] *by appointment only [place] (phone consultation available 15/01) Locations in: [place], [facility], and [place], [place] Vietnamese virtual IOP [phone] or visit Nic.5 examples/LETICIA Also offers LGBTQ programming [facility] [phone] [address] [facility], [address] [place], [address] *Currently only offered via telehealth - call to set up an appointment [facility] [address] [place] [address], [address] [facility] For more information to to make a referral call: [phone] Walk-in on Fridays 9-11 a.m. [facility] [phone] [address] [place], [address] *available by appointments only [facility] specific [phone] [address] [place], [address] *available by appointment only [facility] [phone] [address] [place], [address] *walk in assessments available M-F starting at 7 am. [facility] Addiction Services Locations: [facility], [facility], and [place] *Walk in assessments availble M-F starting at 8 am -virtual only [facility] [phone] [address] [place] [address] [facility] Virtual + Locations: [facility], [place], [place], [facility], [place], [place], [place] *available by appointment only [facility] [phone] [address] [place], [address] [facility]) [phone] [place], [address] *available by appointment [facility] [phone] [address] [place], [address] *walk ins available M-TH from 02-25 [facility] MAT program: [phone] [place], [address] [place] [phone] Same day substance use disorder assessments are available Sunday - Sunday, via walk-in or by appointment at the [place] location. [address], [address], [place] [address] [facility] - adolescent and adult SUDs services [phone] Offer services Sunday through Sunday, as well as evening hours Sunday through . Normally, afirst appointment will be scheduled within one week [email or web address] Locations all over [place] If you are intoxicated, you may be required to detox at a detox facility before starting treatment.The following are detox facilities that you can self present to. All detox facilities are able to help you complete an assessment prior to discharge if you choose: [facility]: Arrive at a [facility] Emergency Department for immediate medical evaluation [facility]: [address] [place], [address]. [phone] [facility]: [address] [place], [place], [phone] [facility] ([facility]): [address] [place], [place], [address] [facility]: [address] [place], [address], Ways to help cope with sobriety: -- Take prescribed medicines as scheduled -- Keep follow-up appointments -- Talk to others about your concerns -- Get regular exercise -- Practice deep breathing skills -- Eat a healthy diet -- Use community resources, including hotline numbers, [facility] crisis and support meetings -- Stay sober and avoid places/people/things associated with substance use --Maintain a daily schedule/routine --Get at least 7-8 hours of sleep per night --Create a list 10--20 healthy activities that you can do that are enjoyable and do not involve substance use --Create daily goals (approx. 1-4 goals) per day and work to achieve them throughout the day. Free Resources: [facility] ([facility]) [facility] connects people seeking recovery to resources that help foster and sustain long-term recovery. Whether you are seeking resources for treatment, transportation, housing, job training, education, health care or other pathways to recovery, [facility] is a great place to start. . www.iowaBusyEvent.5 examples (Great listing of all types of recovery and non-recovery related resources) Alcoholics Anonymous Phone: 3-278-VHDNDTT Website: HTTP://WWW.AA.ORG/ AA [place] (949-088-9717 or http://aaminneawst.cn.org) AA [place] (245-355-7975 or www.aastpaul.org) Narcotics Anonymous Website: www.KO-SU.[employer]. [employer] [facility] [address], [address], [place], [place], Drop-in Hours: Sunday-Sunday 9-11:30 am. By appointment at other times. Provides: [employer] is a drop-in center on the east side [facility] that provides a safe space for individuals who are homeless and have a history of chemical use. Sobriety is not a requirement but drugs and alcohol are not allowed on the property. Services: Non-clients can access drop-in services such as Recovery and Harm Reduction Groups, referrals to case management, community activities, shower facilities, and a pool table. Individuals who are homeless and have chemical health needs may be eligible for enrollment into [employer]'s case management program. Clients and piano case and bench assembler work together to access benefits, treatment, health care, senior care, and external housing resources. documented in this encounter ED Notes * Agusto Johnson MD - 02/09/2024 6:34 AM CDT Emergency Department Note History of Present Illness Chief Complaint Alcohol Intoxication HPI Myla Alcocer is a 38 year old female who presents via EMS with alcohol intoxication. History provided by patient as well as EMS. Patient states that she was drinking alcohol with a neighbor keith fell asleep at her house. She then states she woke up to police/paramedics standing over her. She states this upset her and that she did have an argument with police. She denies suicidal ideation, but EMS reports suggest that patient made suicidal comments to police and EMS, though they also state that many of the comments were passive. Patient denies any pain. She reports she would like to go home. Independent Historian Discussed with EMS. BECKY as filled out by officer Review of External Notes none Past Medical History Medical History and Problem List No past medical history on file. Medications No current outpatient medications on file. Surgical History No past surgical history on file. Physical Exam Physical Exam Nursing note and vitals reviewed. HENT: Mouth/Throat: Moist mucous membranes. Eyes: EOMI, nonicteric sclera Cardiovascular: Normal rate, regular rhythm, no murmurs, rubs, or gallops Pulmonary/Chest: Effort normal and breath sounds normal. No respiratory distress. No wheezes. No rales. Abdominal: Soft. Nontender, nondistended, no guarding or rigidity. Musculoskeletal: Normal range of motion. Neurological: Alert. Moves all extremities spontaneously. Skin: Skin is warm and dry. No rash noted. Psych: agitated, rapid speech. No SI/HI. Not responding to internal stimuli. ED Course Discussion of Management None ED Course The patient arrived in triage where vitals were measured and recorded. The patient was then escorted back to the emergency department. The patient's medical records were reviewed. Nursing notes and vitals were reviewed. I performed an exam of the patient as documented above. The patient is in agreement with my plan ofcare. Additional Documentation None Medical Decision Making / Diagnosis CMS Diagnoses: None MIPS None MDM Myla Alcocer is a 38 year old female who presents with chief complaint alcohol intoxication. It sounds as though after an evening of drinking, patient fell asleep on neighbor's couch and neighbor was unable to wake her and EMS was called. Here, patient is awake and alert and mildly agitated. She is not physically combative. She is quite frustrated with chain of events that led to her being on ahold and in emergency department. She adamantly denies suicidal ideation and is forward thinking. After a few hours in the emergency department she is less agitated and still is not having SI. While patient was initially on an BECKY due to intoxication, her mother was able to come pick her up and stay with her tonight to ensure safety. For this reason, patient discharged in stable condition. All questions answered. Disposition The patient was discharged. Diagnosis ICD-10-CM 1. Alcoholic intoxication without complication (H24) F10.920 Agusto Johnson MD 02/11/241923 * Yesica Shultz RN - 02/09/2024 6:33 AM CDT Pt declined discharge vitals, pt given discharge paperwork, walked pt out to lobby where pt's mother is waiting for her. * Yesica Shultz RN - 02/09/2024 6:18 AM CDT Pt's mother here to sweet pickled fruit maker pt. Pt's mother agreeable to taking patient home. * Yesica Shultz RN - 02/09/2024 4:03 AM CDT Sitter at bedside * Yesica Shultz RN - 02/09/2024 3:42 AM CDT Pt arrives via EMS from neighbor's house. Per EMS, a different neighbor called PD for welfare checkfor pt's children. Pt was found at a neighbors house and per EMS, took 5 minutes of painful stimulation by PD to rouse. Pt also endorsed SI to PD but now adamantly denies that she has ever made suicidal statements. Pt arrives in restraints, agrees to be cooperative in order for restraints to be removed. Restraints not continued in ED. Pt verbally hostile with staff, allows for assessments (VS) after talking through process. Pt endorses having a couple drinks. Arrives on transport hold, BECKY placed upon arrival to ED. Dr Johnson at bedside to assess. * Yesica Shultz RN - 02/09/2024 3:42 AM CDT Bed: ED14 Expected date: Expected time: Means of arrival: Comments: [id number] documented in this encounter Plan of Treatment Not on file documented as of this encounter Visit Diagnoses Diagnosis Alcoholic intoxication without complication (H) documented in this encounter Care Teams Engineering Document Control Clerk Relationship Specialty Start Date End Date No Ref-Primary, Physician PCP - General 02/09/24 documented as of this encounter
--- OUTSIDE RECORDS SUMMARY | 2024-05-07 11:47 | XMS_ITS | Clinical Summary ---
Author Organization [facility] Address [address] [place] [address] Care Team Providers Care Windshield Repair Technician Name Role Phone No Ref-Primary, Physician Primary Care Provider Allergies No known active allergies Medications No known medications Encounters Date Type Department Care Team Description 02/09/2024 3:41 AM CDT - 02/09/2024 6:34 AM CDT Emergency [facility] Emergency Dept [address] [place] [id number] Agusto Johnson MD Alcoholic intoxication without complication (H) Discharge Disposition: Home or Self Care 02/09/2024 Travel from Last 3 Months Social History Tobacco Use Types Packs/Day Years Used Date Smoking Tobacco: Never Assessed Adolescent Education Answer Date Record ed Getting School Help Needed Not on file 03/21 Comments Unknown Sex and Gender Information Value Date Recorded Sex Assigned at Not on file Legal Sex Female 8:23 AM CDT Gender Identity Not on file Sexual Orientation Not on file Last Filed Vital Signs Vital Sign Reading Time Taken Comments Blood Pressure 127/83 02/09/2024 3:50 AM CDT Pulse 88 02/09/2024 3:50 AM CDT Temperature 36.6 ??C (97.8 ??F) 02/09/2024 3:52 AM CD T Respiratory Rate 20 02/09/2024 4:03 AM CDT Oxygen Saturation 98% 02/09/2024 3:52 AM CDT Inhaled Oxygen Concentration - - Weight - - Height - - Body Mass Index - - Plan of Treatment Health Maintenance Due Date Last Done Comments ADVANCE CARE PLANNING 1987 ANNUAL REVIEW OF HM ORDERS 1987 GLUCOSE 1987 HIV SCREENING 2002 HEPATITIS C SCREENING 2005 HEPATITIS B IMMUNIZATION (1 of 3 - 19+ 3-dose series) 2006 PAP 2008 YEARLY PREVENTIVE VISIT 03/02/2021 03/02/20, 07/04/2019 DTAP/TDAP/TD IMMUNIZATION (3 - Td or Tdap) 09/25/2021 09/26/2011, 07/14/2008 PHQ-2 (once per calendar year) 2023 COVID-19 Vaccine ( - 2023-2 5 season) 2024 INFLUENZA VACCINE (#1) 2024 RSV VACCINE (1 - 1-dose 75+ series) 2062 Pneumococcal Vaccine: Pediatrics (0 to 5 Years) and At-Risk Patients (6 to 64 Years) Aged Out 11/12/2020 No longer eligible b ased on patient's age to complete this topic HPV IMMUNIZATION Aged Out No longer e ligible based on patient's age to complete this topic MENINGITIS IMMUNIZATION Aged Out No l onger eligible based on patient's age to complete this topic RSV MONOCLONAL ANTIBODY Aged Out No l onger eligible based on patient's age to complete this topic Insurance [facility] OUT OF STATE [facility] OUT [facility] STATE Care Teams Windshield Repair Technician Relationship Specialty Start Date End Date No Ref-Primary, Physician PCP - General 02/09/24
--- OUTSIDE RECORDS SUMMARY | 2024-05-07 11:47 | XMS_ITS | Referral Summary ---
Author Organization [facility] Address [address] [place] [address] Care Team Providers Care Dehydrator Operator Name Role Phone No Ref-Primary, Physician Primary Care Provider Encounters Date Type Department Care Team Description 02/09/2024 Travel 02/09/2024 3:41 AM CDT - 02/09/2024 6:34 AM CDT Emergency [facility] Emergency Dept [address] [place] [address] Agusto Johnson MD Alcoholic intoxication without complication (H) Discharge Disposition: Home or Self Care from Last 3 Months Allergies No known active allergies Medications No known medications Social History Tobacco Use Types Packs/Day Years [...] Mass Index - - Plan of Treatment Not on file Insurance BCBS OUT OF STATE BCBS OUT OF STATE Care Teams Dehydrator Operator Relationship Specialty Start Date End Date No Ref-Primary, Physician PCP - General 02/09/24
--- OUTSIDE RECORDS SUMMARY | 2024-05-07 11:47 | XMS_ITS | Encounter Summary ---
Author Organization [facility] Address [address] [place] [address] Care Team Providers Care College Service Officer Name Role Phone No Ref-Primary, Physician Primary Care Provider Encounter Details Date Type Department Care Team (Latest Contact Info) Description 02/09/2024 Travel Social History Tobacco Use Types Packs/Day Years Used Date Smoking Tobacco: Never Assessed Adolescent Education Answer Date Record ed Getting School Help Needed Not on file 03/21 Comments Unknown Sex and Gender Information Value Date Recorded Sex Assigned at Not on file Legal Sex Female 8:23 AM CDT Gender Identity Not on file Sexual Orientation Not on file documented as of this encounter Plan of Treatment Not on file documented as of this encounter Visit Diagnoses Not on filedocumented in this encounter Care Teams College Service Officer Relationship Specialty Start Date End Date No Ref-Primary, Physician PCP - General 02/09/24 documented as of this encounter
[2024-05-07 11:48] LABS: Basophils Absolute Auto 0.02 K/uL (0.00-0.30); Basophils Percent Auto 0.3 % (0.0-3.0); Eosinophils Absolute Auto 0.11 K/uL (0.00-0.50); Eosinophils Percent Auto 1.8 % (0.0-7.0); Hematocrit 38.1 % (33.0-51.0); Hemoglobin* 12.4 gm/dL (12.0-16.0); Immature Granulocytes Abs Auto 0.01 K/uL (0.00-0.30); Immature Granulocytes Pct Auto 0.2 %; Lymphocytes Percent Auto 18.9 % (20-44); Mean Corpuscular HGB Conc 33 gm/dL (32-36); Mean Corpuscular Hemoglobin 29 pg (26-34); Mean Corpuscular Volume 88 fL (80-100); Neutrophils Absolute Auto 4.45 K/uL (1.7-7.0); Neutrophils Percent Auto 70.8 % (42.0-72.0); Platelet Count* 284 K/uL (140-440); RDW Coefficient of Variation % 13.8 % (11.5-15.5); Red Blood Count 4.34 m/uL (4.00-5.20); White Blood Count* 6.28 K/uL (4.50-11.00)
[2024-05-07 11:49] LABS: Slide Review Reflex No
[2024-05-07 11:53] LABS: Appearance Urine Clear (Clear); Bilirubin Urine Negative (Negative); Blood Urine Negative (Negative); Color Urine Yellow (Yellow); Glucose Urine Negative (Negative); Ketones Urine Negative (Negative); Leukocyte Esterase Urine Negative (Negative); Nitrite Urine Negative (Negative); Protein Urine Negative (Negative); Urobilinogen Urine 0.2 (0.2-1.0)
[2024-05-07 11:54] LABS: Ur HCG Qualitative* Negative (Negative)
[2024-05-07 11:58] LABS: Albumin* 4.9 g/dL (3.3-5.0); Chloride* 100 mmol/L (96-114)
[2024-05-07 11:59] LABS: Sodium* 136 mmol/L (135-149)
[2024-05-07 12:01] LABS: Alkaline Phosphatase* 54 U/L (40-150); Anion Gap 10 mEq/L (7-15); Aspartate Amino Transferase* 26 U/L (12-35); Bilirubin Direct* 0.3 mg/dL (0.0-0.5); Bilirubin Total* 0.4 mg/dL (0.1-1.5); Carbon Dioxide* 26 mmol/L (20-32); Creatinine* 0.4 mg/dL (0.5-1.5); Estimated Glomerular Filt Rate 131 ml/min; Total Protein* 7.9 g/dL (6.0-8.3)
[2024-05-07 12:02] LABS: Alanine Aminotransferase* 14 U/L (4-35); Blood Urea Nitrogen* 9 mg/dL (5-24); Calcium* 9.6 mg/dL (8.4-10.6); Glucose* 89 mg/dL (60-115); Lipase* 75 U/L (23-300)
[2024-05-07 12:05] LABS: C Reactive Protein* < 0.5 mg/dL (0.5-1.0)
[2024-05-07 12:26] LABS: RBC Urine 0-2 (0-2); WBC Urine 0-2 (0-5)
--- NOTE | 2024-05-07 13:20 | CRLHL7_ITS ---
For Patients: As a result of the Century Cures Act, medical imaging exams and procedure reports are released immediately into your electronic medical record. You may view this report before your referring provider. If you have questions, please contact your health care provider. INDICATION: Epigastric pain TECHNIQUE: Ultrasound abdomen limited. Sonographic images of the right upper quadrant were obtained using chambers-scale and color Doppler images. COMPARISON: None. FINDINGS: Gallbladder: Cholelithiasis. Normal wall thickness. No pericholecystic fluid. Positive sonographic Foster`s sign. Common bile duct: 4 mm. IMPRESSION: Cholelithiasis without evidence of gallbladder wall thickening or pericholecystic fluid to suggest cholecystitis. Sonographic Foster`s sign is positive. Dictated by Reena Mahoney MD @ 05/07/2024 2:02:07 PM (Electronically Signed)
[2024-05-07 13:21] VITALS: BP 110/69; PULSE 51; RESP 18; TEMP 36.3; O2SAT 99
[2024-05-07] MEDS: PANTOPRAZOLE SODIUM 40 MG INJ IVP (14:24)
[2024-05-07 14:52] VITALS: BP 119/80; PULSE 60; RESP 18; TEMP 36.6; O2SAT 100; BMI 25.2
--- NOTE | 2024-05-07 16:37 | P.GSCN_ITS ---
History of Present Illness Consult details Date Seen: 05/07/24 Consult date: 05/07/24 Narrative: The patient is a 38-year-old female who presented to the emergency department today with abdominal pain. She states that she has had abdominal pain for several weeks but it has been much worse since last in the last 2 days it has become more severe to the point where it is painful even to walk. She states that the pain is epigastric in nature and radiates around to her sides and her back. She describes it as a dull ache and a feeling of fullness and bloating but also she states she will have cramping and burning pain. She has never had pain like this before but she does have a history of eosinophilic esophagitis. She does not currently take any medications for this because she had not had any recent symptoms however she states that more recently she has had symptoms of pain with swallowing and feeling like food is getting stuck. It has been severe enough that she has come in for an endoscopy or continue to take her acid blocking medication, however the symptoms she is having now are more severe. With this she has had nausea and dry heaves. She has had no change in her bowel habits. Eating and drinking makes the pain worse. The pain is also worse with movement. No fevers. 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 Smokes one or two cigarettes every few days. What is your current living situation?: I presently have a place to live Problems where you live: no known problems Problems where you live details: N/A In the past 12 months, utilities in danger of being shut off: no In the past 12 mos, have been you worried that your food would run out before you had money to buy more?: never true In the past 12 mos, the food you bought just didn't last and you didn't have money to buy more?: never true Smoking Status: Current some day smoker What tobacco products do you use: cigarettes Do you use any of these nicotine containing products: None How often do you have a drink containing alcohol: 2-4 times a month Alcohol type: beer, wine and hard liquor How many standard drinks containing alcohol do you have on a typical day: 1 or 2 How often do you have six or more drinks on one occasion: Less than monthly AUDIT-C Alcohol total score: 3 Non-prescribed substance use: marijuana (any form) Non-prescribed substance use details: sometimes uses marijuana, not daily Caffeine: Yes How often does anyone, including family, friends and others, physically hurt you : never How often does anyone, including family, friends and others, insult or talk down to you: never How often does anyone, including family, friends and others, threaten you with harm: never How often does anyone, including family, friends and others, scream or curse at you: never service: No Meds Home Medications and Allergies Home Medications ?Medication ?Instructions ?Recorded ?Confirmed ?Type epinephrine 0.3 mg/0.3 mL 0.3 ml IM Q5-15M PRN 02/17/22 05/07/24 History injection, auto-injector ondansetron HCl 4 mg tablet 4 mg PO Q6-8H PRN 02/17/22 05/07/24 History pantoprazole 40 mg tablet,delayed 40 mg PO DAILY PRN 02/17/22 05/07/24 History release gabapentin 100 mg capsule 100 mg PO TID PRN 08/06/22 05/07/24 History buspirone 5 mg tablet 5 mg PO BID PRN 10/30/23 05/07/24 History lorazepam 0.5 mg tablet 0.5 - 1 mg PO DAILY PRN 10/30/23 05/07/24 History cetirizine 10 mg tablet (All Day 10 mg PO DAILY 05/07/24 05/07/24 History Allergy (cetirizine)) fluticasone propionate 50 1 spray intranasal BID PRN 05/07/24 05/07/24 History mcg/actuation nasal spray,suspension (24 Hour Allergy Relief) multivitamin (Daily Multi-Vitamin 1 tab PO DAILY 05/07/24 05/07/24 History tablet) prazosin 1 mg capsule 1 mg PO HS PRN 05/07/24 05/07/24 History sertraline 50 mg tablet 50 mg PO DAILY 05/07/24 05/07/24 History trazodone 50 mg tablet 50 mg PO HS PRN 05/07/24 05/07/24 History Allergies Allergy/AdvReac Type Severity Reaction Status Date / Time bee pollen Allergy Severe Difficulty Verified 05/07/24 12:19 Breathing blackberry Allergy Severe Hives Verified 05/07/24 12:19 peach Allergy Severe Hives Verified 05/07/24 12:19 pomegranate Allergy Severe Hives Verified 05/07/24 12:19 raspberry Allergy Severe Hives Verified 05/07/24 12:19 tree nut Allergy Severe Hives Verified 05/07/24 12:19 Exam Narrative: Exam Narrative: General appearance: Alert, cooperative, and in no distress Eyes: PERRLA, eye lids clear, and sclera white HENT Head: Normocephalic Ears: External ears normal Pulmonary: Breathing nonlabored on room air Cardiovascular Heart: Regular rate Extremities: warm and well perfused Gastrointestinal Abdominal: Scars consistent with surgical history. Patient is tender across the upper abdomen. Mild Foster sign. When pressing on the left upper quadrant she states that she has pain on the right. Musculoskeletal: Extremities: Upper: Both upper extremities have normal joint range of motion and intact strength. Lower: Both lower extremities have normal joint range of motion and intact strength. Skin: Normal skin color, texture, and turgor. Neurologic: No focal deficits Psychiatric: Alert, oriented, cooperative, normal affect. Const: Vital Signs, click to edit/add: Vital Signs - 24 hr 05/07/24 10:51 05/07/24 13:21 05/07/24 14:52 Temperature 97.5 F L 97.3 F L 97.9 F Pulse Rate [Pulse Oximeter] 65 51 L 60 Respiratory Rate 16 18 18 Blood Pressure [Le ft Arm] 119/80 Blood Pressure [Ri ght Upper Arm] 128/81 110/69 Pulse Oximetry 100 99 100 Oxygen Delivery Me thod Room Air Room Air Room Air Results Labs Labs: Abnormal lab results 05/07/24 Range/Units 11:27 Lymph % (Auto) 18.9 L (20-44) % Creatinine 0.4 L (0.5-1.5) mg/dL C-Reactive Protein < 0.5 L (0.5-1.0) mg/dL Diabetes panel 05/07/24 Range/Units 11:27 Sodium 136 (135-149) mmol/L Potassium 4.0 (3.6-5.1) mmol/L Chloride 100 (96-114) mmol/L Carbon Dioxide 26 (20-32) mmol/L BUN 9 (5-24) mg/dL Creatinine 0.4 L (0.5-1.5) mg/dL Glucose 89 (60-115) mg/dL Calcium 9.6 (8.4-10.6) mg/dL AST 26 (12-35) U/L ALT 14 (4-35) U/L Alkaline Phosphatase 54 (40-150) U/L Total Protein 7.9 (6.0-8.3) g/dL Albumin 4.9 (3.3-5.0) g/dL Calcium panel 05/07/24 Range/Units 11:27 Calcium 9.6 (8.4-10.6) mg/dL Albumin 4.9 (3.3-5.0) g/dL Pituitary panel 05/07/24 Range/Units 11:27 Sodium 136 (135-149) mmol/L Potassium 4.0 (3.6-5.1) mmol/L Chloride 100 (96-114) mmol/L Carbon Dioxide 26 (20-32) mmol/L BUN 9 (5-24) mg/dL Creatinine 0.4 L (0.5-1.5) mg/dL Glucose 89 (60-115) mg/dL Calcium 9.6 (8.4-10.6) mg/dL Adrenal panel 05/07/24 Range/Units 11:27 Sodium 136 (135-149) mmol/L Potassium 4.0 (3.6-5.1) mmol/L Chloride 100 (96-114) mmol/L Carbon Dioxide 26 (20-32) mmol/L BUN 9 (5-24) mg/dL Creatinine 0.4 L (0.5-1.5) mg/dL Glucose 89 (60-115) mg/dL Calcium 9.6 (8.4-10.6) mg/dL Total Bilirubin 0.4 (0.1-1.5) mg/dL AST 26 (12-35) U/L ALT 14 (4-35) U/L Alkaline Phosphatase 54 (40-150) U/L Total Protein 7.9 (6.0-8.3) g/dL Albumin 4.9 (3.3-5.0) g/dL All other labs normal. Imaging Abdomen CT scan report/results: report reviewed and image reviewed Abdominal ultrasound report/results: report reviewed and image reviewed Additional studies: CT scan of the abdomen pelvis done today: IMPRESSION: 1. postsurgical changes from gastric bypass. Small hiatal hernia. Otherwise no evidence of bowel obstruction or other acute process in the abdomen. 2. Gallbladder is distended without additional evidence for cholecystitis. No radiopaque gallstones identified. Dictated by Bonilla Heck MD @ 05/07/2024 12:49:03 PM Ultrasound of the abdomen done today FINDINGS: Gallbladder: Cholelithiasis. Normal wall thickness. No pericholecystic fluid. Positive sonographic Foster`s sign. Common bile duct: 4 mm. IMPRESSION: Cholelithiasis without evidence of gallbladder wall thickening or pericholecystic fluid to suggest cholecystitis. Sonographic Foster`s sign is positive. Dictated by Reena Mahoney MD @ 05/07/2024 2:02:07 PM Progress Note:A&P Assessment and plan (1) Epigastric abdominal pain: Status: Acute (2) Cholelithiasis: Status: Acute Plan The patient is a 38-year-old female with a history of eosinophilic esophagitis and gastric bypass who presents with epigastric pain. Workup is remarkable for cholelithiasis. The differential for her pain includes early cholecystitis, marginal ulcer or gastritis. Certainly it is reasonable to proceed with cholecystectomy given her persistent pain and feelings of fullness and pressure which seem more consistent with gallbladder than ulcer or heartburn. Gallbladder anatomy and pathology was discussed with the patient. Risks and benefits of the procedure were discussed, including bleeding, infection, bile leak, conversion to open or injury to other structures, specifically the common bile duct. We also discussed recovery. If her symptoms persist despite cholecystectomy then I would recommend upper endoscopy. I do recommend taking a PPI regularly and also possibly adding Carafate if she has ongoing symptoms. The patient is understandably nervous about having surgery. We will tentatively plan on cholecystectomy tomorrow unless her symptoms were to drastically change on the PPI. NPO after midnight. Clear liquid diet okay until then as long as she is not having pain.
--- NOTE | 2024-05-07 17:10 | PM.IMHP1 ---
Hospitalist- H&P: HPI History of Present Illness Date Seen: 05/07/24 Chief complaint: abdominal discomfort Narrative: Myla Alcocer is a 38 year old female past medical history significant for seasonal allergies, GERD, depression and anxiety, history of gastric bypass is admitted to the medical floor from the ED with ongoing abdominal pain, nausea/anorexia for cholecystectomy tomorrow. Patient reports a 2 week history of waxing and waning abdominal pain in the midepigastric region with increasing nausea and decreased appetite. Only able to eat small bites slowly. Pain intensifies when eating or drinking. Denies vomiting s/p gastric bypass. Denies change in stools. Has a history of eosinophilic esophagitis which has been relatively stable. Does have esophageal/chest discomfort with the occasional sensation of food getting stuck or difficulty swallowing. With this she will have a burning sensation in her chest. She had a gastric bypass in February 2021 while in [place]. Denies recent fevers or chills. Denies chest pain or shortness of breath. Gallbladder ultrasound done in the ED shows a cholelithiasis without evidence of gallbladder wall thickening or pericholecystic fluid to suggest cholecystitis. She is afebrile. ED provider discussed with General surgery, Dr. Pacheco, who assessed the patient upon arrival to the floor. Plan is for cholecystectomy tomorrow. Denies previous anesthesia complications. No personal or family h/o bleeding disorders. Smokes 1-2 cigarettes, 2-3 days per week. Drinks 1-2 alcoholic drinks monthly. Negative UPT. Review of Systems Narrative: REVIEW OF SYSTEMS: Complete review of systems performed and negative unless otherwise stated in HPI or below. 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 Smokes one or two cigarettes every few days. What is your current living situation?: I presently have a place to live Problems where you live: no known problems Problems where you live details: N/A In the past 12 months, utilities in danger of being shut off: no In the past 12 mos, have been you worried that your food would run out before you had money to buy more?: never true In the past 12 mos, the food you bought just didn't last and you didn't have money to buy more?: never true Smoking Status: Current some day smoker What tobacco products do you use: cigarettes Do you use any of these nicotine containing products: None How often do you have a drink containing alcohol: 2-4 times a month Alcohol type: beer, wine and hard liquor How many standard drinks containing alcohol do you have on a typical day: 1 or 2 How often do you have six or more drinks on one occasion: Less than monthly AUDIT-C Alcohol total score: 3 Non-prescribed substance use: marijuana (any form) Non-prescribed substance use details: sometimes uses marijuana, not daily Caffeine: Yes How often does anyone, including family, friends and others, physically hurt you: never How often does anyone, including family, friends and others, insult or talk down to you: never How often does anyone, including family, friends and others, threaten you with harm: never How often does anyone, including family, friends and others, scream or curse at you: never service: No Meds Home Medications and Allergies Home Medications ?Medication ?Instructions ?Recorded ?Confirmed ?Type epinephrine 0.3 mg/0.3 mL 0.3 ml IM Q5-15M PRN 02/17/22 05/07/24 History injection, auto-injector ondansetron HCl 4 mg tablet 4 mg PO Q6-8H PRN 02/17/22 05/07/24 History pantoprazole 40 mg tablet,delayed 40 mg PO DAILY PRN 02/17/22 05/07/24 History release gabapentin 100 mg capsule 100 mg PO TID PRN 08/06/22 05/07/24 History buspirone 5 mg tablet 5 mg PO BID PRN 10/30/23 05/07/24 History lorazepam 0.5 mg tablet 0.5 - 1 mg PO DAILY PRN 10/30/23 05/07/24 History cetirizine 10 mg tablet (All Day 10 mg PO DAILY 05/07/24 05/07/24 History Allergy (cetirizine)) fluticasone propionate 50 1 spray intranasal BID PRN 05/07/24 05/07/24 History mcg/actuation nasal spray,suspension (24 Hour Allergy Relief) multivitamin (Daily Multi-Vitamin 1 tab PO DAILY 05/07/24 05/07/24 History tablet) prazosin 1 mg capsule 1 mg PO HS PRN 05/07/24 05/07/24 History sertraline 50 mg tablet 50 mg PO DAILY 05/07/24 05/07/24 History trazodone 50 mg tablet 50 mg PO HS PRN 05/07/24 05/07/24 History Allergies Allergy/AdvReac Type Severity Reaction Status Date / Time bee pollen Allergy Severe Difficulty Verified 05/07/24 12:19 Breathing blackberry Allergy Severe Hives Verified 05/07/24 12:19 peach Allergy Severe Hives Verified 05/07/24 12:19 pomegranate Allergy Severe Hives Verified 05/07/24 12:19 raspberry Allergy Severe Hives Verified 05/07/24 12:19 tree nut Allergy Severe Hives Verified 05/07/24 12:19 Exam Narrative: Exam Narrative: PHYSICAL EXAM General: Pleasant, conversant, NAD HEENT: Normocephalic, atraumatic, sclera white, EOMI, oral mucosa moist Cardiovascular: RRR, S1S2. No pitting edema Pulmonary: CTA bilaterally without rhonchi, rales, expiratory wheezes. No dyspnea Abdominal: Soft, nondistended, mild discomfort mid epigastric region with palpation, no guarding Neurological: Alert, answering questions appropriately, cranial nerves intact, no focal findings Extremities: No gross joint deformity or swelling. AROMI. Neurovascularly intact Skin: Warm, dry. Const: Vital Signs, click to edit/add: Vital Signs - 24 hr 05/07/24 10:51 05/07/24 13:21 05/07/24 14:52 Temperature 97.5 F L 97.3 F L 97.9 F Pulse Rate [Pulse Oximeter] 65 51 L 60 Respiratory Rate 16 18 18 Blood Pressure [Le ft Arm] 119/80 Blood Pressure [Ri ght Upper Arm] 128/81 110/69 Pulse Oximetry 100 99 100 Oxygen Delivery Me thod Room Air Room Air Room Air Hospitalist - H&P: Result Labs Labs: Short CBC 05/07/24 Range/Units 11:27 WBC 6.28 (4.50-11.00) K/uL Hgb 12.4 (12.0-16.0) gm/dL Hct 38.1 (33.0-51.0) % Plt Count 284 (140-440) K/uL BMP 05/07/24 11:27 Sodium 136 Potassium 4.0 Chloride 100 Carbon Dioxide 26 BUN 9 Creatinine 0.4 L Glucose 89 Calcium 9.6 Liver Function 05/07/24 Range/Units 11:27 Total Bilirubin 0.4 (0.1-1.5) mg/dL Direct Bilirubin 0.3 (0.0-0.5) mg/dL AST 26 (12-35) U/L ALT 14 (4-35) U/L Alkaline Phosphatase 54 (40-150) U/L Albumin 4.9 (3.3-5.0) g/dL Urine 05/07/24 Range/Units 11:45 Urine Color Yellow (Yellow) Urine Appearance Clear (Clear) Urine pH 7.0 (5.0-8.5) Ur Specific [place] 1.010 (1.000-1.030) Urine Protein Negative (Negative) Urine Glucose (UA) Negative (Negative) Imaging CT abdomen pelvis: Attestation: I have reviewed the pertinent imaging results. Radiologist's impression: Lower chest: Unremarkable. Liver: Unremarkable. Normal in size and attenuation. No suspicious masses. Gallbladder and bile ducts: Gallbladder is distended. No radiopaque gallstones identified. No intra or extrahepatic biliary dilatation. Pancreas: Unremarkable. No mass or inflammation. Spleen: Unremarkable. Normal in size. No masses. Adrenal glands: Unremarkable. No nodules. Kidneys: Unremarkable. No suspicious masses, stones, or hydronephrosis. GI tract: Post surgical changes from gastric bypass. No bowel obstruction. Small hiatal hernia. Appendix not visualized. Vasculature: Abdominal aorta is normal in caliber. Mesenteric arteries are patent. Lymph nodes: No lymphadenopathy. Peritoneum/Abdominal Wall: Unremarkable. No sign of mass or infiltration. No free air or significant free fluid. Pelvis: Unremarkable. Bones: Unremarkable for age. IMPRESSION: 1. postsurgical changes from gastric bypass. Small hiatal hernia. Otherwise no evidence of bowel obstruction or other acute process in the abdomen. 2. Gallbladder is distended without additional evidence for cholecystitis. No radiopaque gallstones identified. Gallbladder ultrasound: Attestation: I have reviewed the pertinent imaging results. Radiologist's impression: Gallbladder: Cholelithiasis. Normal wall thickness. No pericholecystic fluid. Positive sonographic Foster`s sign. Common bile duct: 4 mm. IMPRESSION: Cholelithiasis without evidence of gallbladder wall thickening or pericholecystic fluid to suggest cholecystitis. Sonographic Foster`s sign is positive. Assessment and Plan Assessment and plan (1) Cholelithiasis: Problem comment: -CT shows cholelithiasis without evidence of gallbladder wall thickening or pericholecystic fluid to suggest cholecystitis. Sonographic Foster`s sign is positive -afebrile, vitally stable -no leukocytosis, LFTs unremarkable, lipase 75 -discussed with General surgery, Dr. Pacheco. Plan for cholecystectomy 05/08 -Clear diet for now, NPO at midnight -IV PPI, Carafate q.i.d., pain and nausea management as needed Status: Acute (2) Epigastric abdominal pain: Problem comment: -with nausea. No vomiting (s/p gastric bypass). No change in stools. -management abdominal pain and nausea prn Status: Acute Total Time Spent Total Time Spent: Total time spent caring for the patient today was 75 minutes. This includes time spent for the visit reviewing the chart, time spent during the visit, time spent after the visit and documentation and planning in coordination of care.
[2024-05-07 19:00] VITALS: BP 116/68; PULSE 52; RESP 18; O2SAT 100
[2024-05-07] MEDS: MORPHINE 4 MG/ML INJ 2 MG IVP ×2 (19:41→23:33)
[2024-05-07] MEDS: ONDANSETRON 2 MG/ML inj 4 MG IVP (19:42)
[2024-05-07] MEDS: SODIUM CHLORIDE 0.9 % (FLUSH) 10 ML SYRINGE 5 ML IVF (19:42)
[2024-05-07] MEDS: SUCRALFATE 1 GM TABLET PO (21:31)
[2024-05-07 23:00] VITALS: BP 109/20; PULSE 48; PULSE 59; RESP 18; TEMP 36.6; O2SAT 99
[2024-05-07] MEDS: 0.9 % SODIUM CHLORIDE 1000 ml 1,000 ML 125 ML IV (23:33)
[2024-05-08] VITALS (18 sets, daily range): BP systolic 96–131; BP diastolic 53–84; PULSE 53–78; RESP 12–18; TEMP 36.4–37; O2SAT 93–100
[2024-05-08] MEDS: MORPHINE 4 MG/ML INJ 2 MG IVP ×3 (02:31→08:41)
--- NOTE | 2024-05-08 07:06 | PC.NURSE ---
Pt alert, oriented and vitally stable. Pt pain rated 6-8/10 throughout shift, prn morphine given. Pain in RUQ radiating to back. Pt NPO at midnight. Up ind. Bowels active.
[2024-05-08 07:38] LABS: Hematocrit 33.5 % (33.0-51.0); Hemoglobin* 10.7 gm/dL (12.0-16.0); Mean Corpuscular HGB Conc 32 gm/dL (32-36); Mean Corpuscular Hemoglobin 28 pg (26-34); Mean Corpuscular Volume 88 fL (80-100); Red Blood Count 3.79 m/uL (4.00-5.20); White Blood Count* 4.84 K/uL (4.50-11.00)
[2024-05-08 07:44] LABS: Chloride* 105 mmol/L (96-114)
[2024-05-08 07:45] LABS: Potassium* 3.9 mmol/L (3.6-5.1); Sodium* 135 mmol/L (135-149)
[2024-05-08 07:48] LABS: Anion Gap 5 mEq/L (7-15); Blood Urea Nitrogen* 5 mg/dL (5-24); Calcium* 8.6 mg/dL (8.4-10.6); Carbon Dioxide* 25 mmol/L (20-32); Creatinine* 0.4 mg/dL (0.5-1.5); Estimated Glomerular Filt Rate 131 ml/min; Glucose* 79 mg/dL (60-115)
[2024-05-08 08:05] LABS: Platelet Count* 280 K/uL (140-440); Slide Review Reflex No
[2024-05-08] MEDS: 0.9 % SODIUM CHLORIDE 1000 ml 1,000 ML 125 ML IV (08:05)
[2024-05-08] MEDS: PANTOPRAZOLE SODIUM 40 MG INJ IVP (08:41)
[2024-05-08] MEDS: SERTRALINE 50 MG TABLET PO (08:42)
[2024-05-08] MEDS: CETIRIZINE HCL 10 MG TABLET PO (08:42)
[2024-05-08] MEDS: SODIUM CHLORIDE 0.9 % (FLUSH) 10 ML SYRINGE 5 ML IVF (08:42)
--- NOTE | 2024-05-08 09:17 | PM.IMPN1 ---
Progress Note: A&P Assessment and plan (1) Cholelithiasis: Problem details: -CT shows cholelithiasis without evidence of gallbladder wall thickening or pericholecystic fluid to suggest cholecystitis. Sonographic Foster`s sign is positive -afebrile, vitally stable -no leukocytosis, LFTs unremarkable, lipase 75 -discussed with General surgery, Dr. Pacheco. Plan for cholecystectomy 05/08 -Clear diet for now, NPO at midnight -IV PPI, Carafate q.i.d., pain and nausea management as needed Status: Acute (2) Epigastric abdominal pain: Problem details: -with nausea. No vomiting (s/p gastric bypass). No change in stools. -management abdominal pain and nausea prn Status: Acute Plan As above Time Spent With Patient Total time spent: Today I spent 50 minutes seeing the patient, reviewing Expanse and EPIC notes/diagnostics, discussing the care plan with our care time that includes social work, PT/OT, pharmacy, RT, residential and documenting my impressions and plan in the medical record. Subjective Date Seen: 05/08/24 Interval history: Patient has been seen and examined on the bedside. I she still has some epigastric pain. She states that she wants to do lapchole before doing EGD. Exam Narrative: Exam Narrative: Physical exam GENERAL: Comfortable, no acute distress. HEAD AND NECK: Atraumatic, normocephalic CARDIOVASCULAR: RRR. Normal S1, S2. No murmurs. RESPIRATORY: Clear to auscultation B/L. Good air entry B/L. No wheezes or rhonchi. GASTROINTESTINAL: mild tenderness to palpation of epigastric area days. NEUROLOGY: Alert, awake, oriented X 3. Normal speech. PSYCH: Normal mood, normal affect. Const: Vital Signs, click to edit/add: Vital Signs - 24 hr 05/07/24 10:51 05/07/24 13:21 05/07/24 14:52 Temperature 97.5 F L 97.3 F L 97.9 F Pulse Rate [Pulse Oximeter] 65 51 L 60 Respiratory Rate 16 18 18 Blood Pressure [Le ft Arm] 119/80 Blood Pressure [Ri ght Upper Arm] 128/81 110/69 Pulse Oximetry 100 99 100 Oxygen Delivery Me thod Room Air Room Air Room Air 05/07/24 19:00 05/07/24 23:00 05/07/24 23:00 Temperature 97.9 F Pulse Rate [Pulse Oximeter] 52 L 59 L 48 L Respiratory Rate 18 18 18 Blood Pressure [Le ft Arm] 116/68 109/20 L Blood Pressure [Ri ght Upper Arm] Pulse Oximetry 100 99 Oxygen Delivery Me thod Room Air Room Air 05/08/24 03:00 05/08/24 07:00 05/08/24 07:00 Temperature 98.1 F 98.1 F Pulse Rate [Pulse Oximeter] 54 L 53 L 53 L Respiratory Rate 16 12 12 Blood Pressure [Le ft Arm] 103/59 L 96/53 L Blood Pressure [Ri ght Upper Arm] Pulse Oximetry 99 100 Oxygen Delivery Me thod Room Air Room Air Labs Labs: Laboratory Results - last 24 hr 05/07/24 05/07/24 05/08/24 11:27 11:45 06:24 WBC 6.28 4.84 RBC 4.34 3.79 L Hgb 12.4 10.7 L Hct 38.1 33.5 MCV 88 88 MCH 29 28 MCHC 33 32 RDW Coeff of Oscar 13.8 Plt Count 284 280 Neut % (Auto) 70.8 Lymph % (Auto) 18.9 L [place] % (Auto) 8.0 Eos % (Auto) 1.8 Baso % (Auto) 0.3 Neut # (Auto) 4.45 Lymph # (Auto) 1.20 [place] # (Auto) 0.50 Eos # (Auto) 0.11 Baso # (Auto) 0.02 Abs Immat Gran (auto) 0.01 Imm/Tot Granulo (auto) 0.2 Sodium 136 135 Potassium 4.0 3.9 Chloride 100 105 Carbon Dioxide 26 25 Anion Gap 10 5 L BUN 9 5 Creatinine 0.4 L 0.4 L Estimated Creat Clear 203.20 203.20 Estimated GFR 131 131 Glucose 89 79 Lactate 0.7 Calcium 9.6 8.6 Total Bilirubin 0.4 Direct Bilirubin 0.3 AST 26 ALT 14 Alkaline Phosphatase 54 C-Reactive Protein < 0.5 L Total Protein 7.9 Albumin 4.9 Lipase 75 Urine Color Yellow Urine Appearance Clear Urine pH 7.0 Ur Specific [place] 1.010 Urine Protein Negative Urine Glucose (UA) Negative Urine Ketones Negative Urine Blood Negative Urine Nitrite Negative Urine Bilirubin Negative Urine Urobilinogen 0.2 Ur Leukocyte Esterase Negative Urine RBC 0-2 Urine WBC 0-2 Ur Squamous Epith Cells None Urine Bacteria None Urine HCG, Qual Negative Imaging US - abdomen: Radiologist's impression: TECHNIQUE: Ultrasound abdomen limited. Sonographic images of the right upper quadrant were obtained using chambers-scale and color Doppler images. COMPARISON: None. FINDINGS: Gallbladder: Cholelithiasis. Normal wall thickness. No pericholecystic fluid. Positive sonographic Foster`s sign. Common bile duct: 4 mm. IMPRESSION: Cholelithiasis without evidence of gallbladder wall thickening or pericholecystic fluid to suggest cholecystitis. Sonographic Foster`s sign is positive. Dictated by Reena Mahoney MD @ 05/07/2024 2:02:07 PM
--- NOTE | 2024-05-08 09:56 | P.GSPN_ITS ---
Subjective Subjective Date Seen: 05/08/24 Interval history: Myla continues to have pain. She states that the pain is epigastric and radiates to her back and is also on the right side. She feels that it is radiating down her abdomen as well. She does have some burning pain when she sw allows water, but this is not the bulk of her discomfort. She tried Carafate yesterday and thinks it may have helped slightly but is not sure. Exam 2 Narrative: Exam Narrative: General: No acute distress Abdomen: Mildly tender across the upper abdomen. Right is not particularly more tender than the left. Const: Vital Signs, click to edit/add: Vital Signs - 24 hr 05/07/24 10:51 05/07/24 13:21 05/07/24 14:52 Temperature 97.5 F L 97.3 F L 97.9 F Pulse Rate [Pulse Oximeter] 65 51 L 60 Respiratory Rate 16 18 18 Blood Pressure [Le ft Arm] 119/80 Blood Pressure [Ri ght Upper Arm] 128/81 110/69 Pulse Oximetry 100 99 100 Oxygen Delivery Me thod Room Air Room Air Room Air 05/07/24 19:00 05/07/24 23:00 05/07/24 23:00 Temperature 97.9 F Pulse Rate [Pulse Oximeter] 52 L 59 L 48 L Respiratory Rate 18 18 18 Blood Pressure [Le ft Arm] 116/68 109/20 L Blood Pressure [Ri ght Upper Arm] Pulse Oximetry 100 99 Oxygen Delivery Me thod Room Air Room Air 05/08/24 03:00 05/08/24 07:00 05/08/24 07:00 Temperature 98.1 F 98.1 F Pulse Rate [Pulse Oximeter] 54 L 53 L 53 L Respiratory Rate 16 12 12 Blood Pressure [Le ft Arm] 103/59 L 96/53 L Blood Pressure [Ri ght Upper Arm] Pulse Oximetry 99 100 Oxygen Delivery Me thod Room Air Room Air Labs/Imaging Labs Labs: White blood cell count today remains normal. Hemoglobin is down slightly which may be dilution from fluids. Progress Note:A&P Assessment and plan (1) Epigastric abdominal pain: Status: Acute (2) Cholelithiasis: Status: Acute Plan The patient is a 38-year-old female with epigastric pain, bloating and fullness radiating to her back. She also has some burning pain which may be secondary to gastritis or ulcer at her gastrojejunostomy. We talked about her symptoms today in the merits of starting with an upper endoscopy verses cholecystectomy. Certainly she does not have signs of acute cholecystitis on imaging in her labs would not suggest that, however the pain she is describing certainly seems consistent with this except for the burning pain which may be more related to heartburn. Since she has not made significant improvement with a PPI and Carafate I think it is reasonable to proceed with cholecystectomy in the patient is agreeable with that. If this does not relieve her symptoms then we will plan on potentially EGD as inpatient or an outpatient depending on her symptoms. We discussed risks of surgery and she signed informed consent.
[2024-05-08] MEDS: BUPIVACAINE 0.25% 30 ML INJECTION (13:31)
--- NOTE | 2024-05-08 13:40 | W.ANESCHARGE ---
Anesthesia Charges Start Date/Time Anesthesia Start Date: 05/08/24 Anesthesia Start Time: 12:59 Stop Date/Time Anesthesia Stop Date: 05/08/24 Anesthesia Stop Time: 14:20 Summary Emergency: MDA
--- NOTE | 2024-05-08 14:14 | P.GSOP_ITS ---
Operative Note Date of procedure: 05/08/24 Pre-op diagnosis: Biliary colic, concern for early cholecystitis. Post-op diagnosis: Same Type of Procedure: Laparoscopic cholecystectomy Indications: The patient is a 38-year-old female who presented with severe epigastric pain and nausea. 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 Workup revealed gallstones. Her pain persisted and discussion was had about cholecystectomy versus upper endoscopy looking for marginal ulcer. Because her symptoms appear to be more consistent with biliary symptoms she agreed to proceed with cholecystectomy after discussi on of risks and benefits. Procedure Description: After discussing the risks and benefits of the procedure, the patient signed informed consent.? The operative site was marked and the patient was brought to the operating room and placed on the operating table in supine position.? Care was taken to pad the patient's pressure points.?? The patient was then intubated by anesthesia.?? The operative site was then prepped and draped in the usual sterile fashion.? A time-out was then performed. Entrance to the abdomen was gained via a 5 mm Visiport in the left upper quadrant. The abdomen was insufflated and briefly surveyed for signs of injury. There was none. A 10 mm umbilical port was placed as well as 2 working ports along the right costal margin, all under direct vision. The patient was then placed in reverse Trendelenburg position with the right side up. The gallbladder fundus was grasped and retracted cephalad. A small amount of dissection was needed to free omental adhesions from the gallbladder. The infundibulum was grasped. The gallbladder was extremely large and distended however did not appear acutely inflamed. A combination of hook cautery and blunt dissection was used to carefully dissect out the cystic duct and artery until they could clearly be seen entering the gallbladder without any intervening structures. There were a few diminutive vessels located along the edge of the gallbladder and going into the gallbladder which were clipped or cauterized for hemostasis. The gallbladder was dissected off the cystic plate to achieve the critical view. Once this was achieved the cystic duct and artery were each clipped with 2 clips proximally and 1 clip distally and transected with the scissors. The gallbladder was then taken off of the liver bed Again small vessels coming from the liver into the gallbladder were clipped for hemostasis. The gallbladder was removed from the abdomen using an Endo-Catch bag. The gallbladder was quite large which necessitated making the incision larger to extract it. The gallbladder bed was surveyed for hemostasis which appeared adequate. The umbilical port fascia was closed with 0 Vicryl in a running fashion. The remaining ports were then removed and the abdomen desufflated. The skin was closed with absorbable subcuticular suture. Sterile dressings were applied. Instrument sponge and needle counts were correct at the end of the case. The patient was then woken and transferred to the PACU in stable condition. ? The patient tolerated the procedure well. Findings: Markedly distended gallbladder. No obvious acute cholecystitis. Anesthesia: GETA Surgeon: Myla Pacheco MD Estimated blood loss (mL): 7 Specimen: Gallbladder Condition: stable Disposition: PACU
--- NOTE | 2024-05-08 14:23 | W.ANESCHARGE ---
Anesthesia Charges Start Date/Time Anesthesia Start Date: 05/08/24 Anesthesia Start Time: 12:59 Stop Date/Time Anesthesia Stop Date: 05/08/24 Anesthesia Stop Time: 14:20 Summary Emergency: OPERATING THEATRE TECHNICIAN
[2024-05-08] MEDS: HYDROmorphone 0.5 mg/0.5 ml inj IVP (15:15)
[2024-05-08] MEDS: METOCLOPRAMIDE HCL 5 MG/ML INJ 10 MG IVP (15:16)
[2024-05-08] MEDS: HYDROCODONE-ACETAMIN 5-325 MG 1 TAB PO (17:03)
--- NOTE | 2024-05-08 20:03 | PC.NURSE ---
End of Shift: Patient from PACU approx 1610. Afebrile. Rating pain in abdomen 5-8/10 and PRN [place] given x1. 4 lap sites to abdomen C/D/I. Up to bathroom with SBA and voided x1. Tolerating toast and jello with no nausea. Patient discharged home at 1827 with all personal belongings accompanied by friend. Discharge instructions including diagnosis, medications and follow up appointment discussed with patient and voiced understanding.
--- OUTSIDE RECORDS SUMMARY | 2024-05-09 13:42 | XMS_ITS | Referral Summary ---
Author Organization [facility] Address [address] [place] [address] Care Team Providers Care Diver Assistant Name Role Phone No Ref-Primary, Physician Primary Care Provider Encounters Date Type Department Care Team Description 02/09/2024 Travel 02/09/2024 3:41 AM CDT - 02/09/2024 6:34 AM CDT Emergency [facility] Emergency Dept [address] [place] [address] Agusto Johnson MD Alcoholic intoxication without complication [...] STATE BCBS OUT OF STATE Care Teams Diver Assistant Relationship Specialty Start Date End Date No Ref-Primary, Physician PCP - General 02/09/24
--- OUTSIDE RECORDS SUMMARY | 2024-05-09 13:42 | XMS_ITS | Encounter Summary ---
Author Organization [facility] Address [address] [place] [address] Care Team Providers Care Last Putter Away Name Role Phone No Ref-Primary, Physician Primary Care Provider Reason for Visit * Reason Comments Alcohol Intoxication Encounter Details Date Type Department Care Team (Late st Contact Info) Description 02/09/2024 3:41 AM CDT - 02/09/2024 6:34 AM CDT Emergency [facility] Emergency Dept [address] [place] [address] Agusto Johnson MD [facility] [address] [place] [address] Alcoholic intoxication without complication (H) Discharge Disposition: [...] nerves or get rid of a hangover(eye workforce development assistant)? If you answer yes to any of [...] help, contact: Your caregiver. Alcoholics Anonymous (AA). [facility] Intergroup: [phone] [facility] Central Office: [phone] A drug or alcohol rehabilitation program. You can get information on alcohol resources and groups by calling the number 132 or on any phone. Seek medical care [...] all mood altering chemicals. Please contact the [employer] support hotline ([phone]) as needed; phones are answered 24 hours a day, 7 days a week. To access substance use treatment you must have a comprehensive assessment completed to begin any treatment program. If uninsured, please contact your county of residence for eligibility screen to substance use disorder evaluation and treatment: [place] - [phone] [facility] [phone] [place] - [phone] [place] - [phone] [facility] [phone] [facility] [phone] [facility] [phone] [facility] [phone] If you have private insurance, call the [...] change, please call the provider to confirm [facility] [address] [place], [address] *Please call the above number to schedule a comprehensive assessment for determination of level of care needs. In person and virtual appointments available Mon-Fri. [facility], [address], First Floor, [address], [place] [address] (next [facility] outpatient lab) Provides bridging services to people with Opiate Use Disorders (OUD) seeking care. This is a front door to Medication Assisted Treatments (MAT), ages 16+ Walk In hours: Sunday-Sunday 9:00am-3:00pm [facility] [phone] Walk in Assessments: Sun-Sunday 7a-1:45p [address] [facility], [address] [facility] Recovery - People [facility] Central Access [phone] [address] [place], [address] *by appointment only [place] (phone consultation available 15/01) Locations in: [place], [facility], and [place], [place] Lithuanian virtual IOP [phone] or visit Nic.Blogic/LETICIA Also offers LGBTQ programming [facility] [phone] [address] [facility], [address] [place], [address] *Currently only offered via telehealth - call to set up an appointment [facility] [address] [place] [address], [address] [facility] For more information to to make a referral call: [phone] Walk-in on Fridays 9-11 a.m. [facility] [phone] [address] [place], [address] *available by appointments only [facility] specific [phone] [address] [place], [address] *available by appointment only [facility] [phone] [address] [place], [address] *walk in assessments available M-F starting at 7 am. [facility] Addiction Services Locations: [facility], [facility], and [place] *Walk in assessments availble M-F starting at 8 am -virtual only [facility] [phone] [address] [place] [address] [facility] Virtual + Locations: [facility], [place], [place], [facility], [place], [place], [place] *available by appointment only [facility] [phone] [address] [place], [address] [facility]) [phone] [place], [address] *available by appointment [facility] [phone] [address] [place], [address] *walk ins available M-TH from 02-25 [facility] MAT program: [phone] [place], [address] [place] [phone] Same day substance use disorder assessments are available Sunday - Sunday, via walk-in or by appointment at the [place] location. [address], [address], [place] [address] [facility] - adolescent and adult SUDs services [phone] Offer services Sunday through Sunday, as well as evening hours Sunday through . Normally, afirst appointment will be scheduled within one week [email or web address] Locations all over [place] If you are intoxicated, you may be required to detox at a detox facility before starting treatment.The following are detox facilities that you can self present to. All detox facilities are able to help you complete an assessment prior to discharge if you choose: [facility]: Arrive at a [facility] for immediate medical evaluation [facility]: [address] [place], [address]. [phone] [facility]: [address] [place], [place], [id number] [facility] ([facility]): [address] [place], [place], [address] [facility]: [address] [place], [address], Ways to help cope with sobriety: -- Take prescribed medicines as scheduled -- Keep follow-up appointments -- Talk to others about your concerns -- Get regular exercise -- Practice deep breathing skills -- Eat a healthy diet -- Use community resources, including hotline numbers, cone health crisis and support meetings -- Stay sober [...] achieve them throughout the day. Free Resources: [facility] ([facility]) [facility] connects people seeking recovery to resources that help foster and sustain long-term recovery. Whether you are seeking resources for treatment, transportation, housing, job training, education, health care or other pathways to recovery, [facility] is a great place to start. . www.[place] virgin[place]TV189.com.[employer]logic (Great listing of all types of recovery and non-recovery related resources) Alcoholics Anonymous Phone: 4-313-UQGSLVY Website: HTTP://WWW.AA.ORG/ AA [place] (042-893-5236 or http://aaminneaM9 Defense.org) AA [place] (846-004-5243 or www.aastpaul.org) Narcotics Anonymous Website: www.[employer].-[employer]. [employer] [address], [address], [place], [place], Drop-in Hours: Sunday-Sunday 9-11:30 am. By appointment at other times. Provides: [facility] is a drop-in center on the east side [facility] that provides a safe space for [...] needs may be eligible for enrollment into [facility]'s case management program. Clients and showcase trimmer work together to access benefits, treatment, health care, chcf, and external housing resources. 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 Pt's mother agreeable to taking patient [...] (H) documented in this encounter Care Teams Last Putter Away Relationship Specialty Start Date End Date No Ref-Primary, Physician PCP - General 02/09/24 documented as of this encounter
--- OUTSIDE RECORDS SUMMARY | 2024-05-09 13:42 | XMS_ITS | Clinical Summary ---
Author Organization [facility] Address [address] [place] [address] Care Team Providers Care Manager Of Investigations Name Role Phone No Ref-Primary, Physician Primary Care Provider Allergies No known active allergies Medications No known medications Encounters Date Type Department Care Team Description 02/09/2024 3:41 AM CDT - 02/09/2024 6:34 AM CDT Emergency [facility] Emergency Dept [address] [place] [phone] Agusto Johnson MD Alcoholic intoxication without complication [...] patient's age to complete this topic Insurance [facility] OUT [facility] STATE [facility] Care Teams Manager Of Investigations Relationship Specialty Start Date End Date No Ref-Primary, Physician PCP - General 02/09/24
--- OUTSIDE RECORDS SUMMARY | 2024-05-09 13:42 | XMS_ITS | Encounter Summary ---
Author Organization [facility] Address [address] [place] [address] Care Team Providers Care Extension Edger Name Role Phone No Ref-Primary, Physician Primary [...] on filedocumented in this encounter Care Teams Extension Edger Relationship Specialty Start Date End Date No Ref-Primary, Physician PCP - General 02/09/24 documented as of this encounter
--- NOTE | 2024-05-20 09:02 | W.ANESCHARGE ---
Anesthesia Charges Start Date/Time Anesthesia Start Date: 05/08/24 Anesthesia Start Time: 12:59 Stop Date/Time Anesthesia Stop Date: 05/08/24 Anesthesia Stop Time: 14:20 Summary Emergency: MEDICAL CHEMIST
== END 2024-05-08 18:27 | disposition home or self-care (01) ==
LOC: ED 14:21 → MEDSURG 14:44 → SS 05-09 13:41 → MEDSURG 05-09 13:42
PROVIDERS: Physician Assistant; Surgery; Emergency Provider Family Medicine; Visit Provider Family Medicine
PROC: 0FT44ZZ Resection of Gallbladder, Percutaneous Endoscopic Approach (ICD-10-PCS; CPT 47562; principal; 2024-05-08 13:15)
DX: K80.10 Calculus of gallbladder with chronic cholecystitis without obstruction (principal); R10.13 Epigastric pain; Z98.84 Bariatric surgery status; K21.9 Gastro-esophageal reflux disease without esophagitis; F41.9 Anxiety disorder, unspecified; F32.A Depression, unspecified
CPT/HCPCS: 47562; 00790; 36415; 74177; 76705; 80048; 80053; 81001; 81025; 82248; 83605; 83690; 85025; 85027; 86140; 88304; 99140; 99284; 99285; A9270; G0378; J0330; J0665; J1100; J1171; J1630; J2270; J2405; J2470; J2704; J2765; J3010; J7030; Q9967

== ENCOUNTER 2024-05-15 16:26 | Emergency (ER) | payer BC, SELFPAY ==
[2024-05-15] VITALS (13 sets, daily range): BP systolic 99–110; BP diastolic 65–66; PULSE 67–85; RESP 20; TEMP 37; O2SAT 97–99; BMI 25.1
--- NOTE | 2024-05-15 17:15 | ED_ITS ---
HPI - General Adult General Date Seen: 05/15/24 Chief complaint: Shortness of Breath/Dyspnea Stated complaint: difficulty breathing Time Seen by Provider: 05/15/24 16:48 Source: patient Mode of arrival: ambulatory Limitations: no limitations History of Present Illness HPI narrative: Patient is a 38-year-old woman who is 1 week status post cholecystectomy for possible early cholecystitis. She also has a history of gastric bypass and eosinophilic esophagitis and there was concern for possible esophagitis or gastric ulcer. She reports that since the surgery, she has developed new discom fort which is more in her lower chest which radiates to the back. She has felt short of breath for the past 5 days, worse in the past couple of days. She says it feels like there is something heavy sitting on her chest. She has not had significant fevers or cough. She does have pleuritic pain. She denies lower extremity swelling or pain. She has no history of DVT or PE. She does smoke, denies any hormonal therapy. Other medical history reviewed. Related Data Home Medications ?Medication ?Instructions ?Recorded ?Confirmed epinephrine 0.3 mg/0.3 mL 0.3 ml IM Q5-15M PRN 02/17/22 05/07/24 injection, auto-injector ondansetron HCl 4 mg tablet 4 mg PO Q6-8H PRN 02/17/22 05/07/24 pantoprazole 40 mg tablet,delayed 40 mg PO DAILY PRN 02/17/22 05/07/24 release gabapentin 100 mg capsule 100 mg PO TID PRN 08/06/22 05/07/24 buspirone 5 mg tablet 5 mg PO BID PRN 10/30/23 05/07/24 lorazepam 0.5 mg tablet 0.5 - 1 mg PO DAILY PRN 10/30/23 05/07/24 cetirizine 10 mg tablet (All Day 10 mg PO DAILY 05/07/24 05/07/24 Allergy (cetirizine)) fluticasone propionate 50 1 spray intranasal BID PRN 05/07/24 05/07/24 mcg/actuation nasal spray,suspension (24 Hour Allergy Relief) multivitamin (Daily Multi-Vitamin 1 tab PO DAILY 05/07/24 05/07/24 tablet) prazosin 1 mg capsule 1 mg PO HS PRN 05/07/24 05/07/24 sertraline 50 mg tablet 50 mg PO DAILY 05/07/24 05/07/24 trazodone 50 mg tablet 50 mg PO HS PRN 05/07/24 05/07/24 Previous Rx's ?Medication ?Instructions ?Recorded albuterol sulfate 90 mcg/actuation 2 puff inhalation Q6H PRN 04/25/23 aerosol inhaler shortness of breath or wheezing #6.7 grams hydrocodone 5 mg-acetaminophen 325 1 tab PO Q6H PRN pain #14 tabs 05/08/24 mg tablet pantoprazole 40 mg tablet,delayed 40 mg PO DAILY #30 tabs 05/08/24 release Allergies Allergy/AdvReac Type Severity Reaction Status Date / Time bee pollen Allergy Severe Difficulty Verified 05/15/24 16:45 Breathing blackberry Allergy Severe Hives Verified 05/15/24 16:45 peach Allergy Severe Hives Verified 05/15/24 16:45 pomegranate Allergy Severe Hives Verified 05/15/24 16:45 raspberry Allergy Severe Hives Verified 05/15/24 16:45 tree nut Allergy Severe Hives Verified 05/15/24 16:45 Review of Systems Status of ROS: Reports: 10 or more systems reviewed and unremarkable except as noted in History and below [facility] Medical History Anxiety ?F41.9 - Anxiety disorder, unspecified (ICD-10) Eosinophilic esophagitis ?K20.0 - Eosinophilic esophagitis (ICD-10) Surgical History H/O wisdom tooth extraction ?K08.409 - Partial loss of teeth, unspecified cause, unspecified class (ICD- 10) S/P gastric bypass ?Z98.84 - Bariatric surgery status (ICD-10) Social History Narrative: 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 Smokes one or two cigarettes every few days. What is your current living situation?: I presently have a place to live Problems where you live: no known problems Problems where you live details: N/A In the past 12 months, utilities in danger of being shut off: no In the past 12 mos, have been you worried that your food would run out before you had money to buy more?: never true In the past 12 mos, the food you bought just didn't last and you didn't have money to buy more?: never true Smoking Status: Current some day smoker What tobacco products do you use: cigarettes Do you use any of these nicotine containing products: None How often do you have a drink containing alcohol: 2-4 times a month Alcohol type: beer, wine and hard liquor How many standard drinks containing alcohol do you have on a typical day: 1 or 2 How often do you have six or more drinks on one occasion: Less than monthly AUDIT-C Alcohol total score: 3 Non-prescribed substance use: marijuana (any form) Non-prescribed substance use details: sometimes uses marijuana, not daily Caffeine: Yes How often does anyone, including family, friends and others, physically hurt you : never How often does anyone, including family, friends and others, insult or talk down to you: never How often does anyone, including family, friends and others, threaten you with harm: never How often does anyone, including family, friends and others, scream or curse at you: never service: No Exam Narrative: Exam Narrative: Vital signs reviewed In general, alert, nontoxic mid age woman. She is breathing easily. Head: Normocephalic, atraumatic. Eyes: Sclera clear. Pupils equal and reactive. ENT: Mucous membranes moist. Neck: Supple without adenopathy. Heart: Regular rate and rhythm without murmur. Lungs: Clear. No increased work of breathing, crackles or wheezes. Abdomen: Soft, nontender to palpation. Incisions are healing well without erythema, swelling, tenderness. Extremities: Well perfused, pulses intact. No significant edema. Neurologic: Alert, conversant. Speech fluent, face symmetric. Moves all extremities equally. Skin: Warm, dry well perfused. Affect: Normal. Const: Vital Signs, click to edit/add: Vital Signs - 24 hr 05/15/24 16:40 05/15/24 16:56 05/15/24 17:00 Temperature 98.6 F Pulse Rate 77 70 Pulse Rate [Pulse Oximeter] 77 Respiratory Rate 20 Blood Pressure Blood Pressure [Ri ght Upper Arm] 99/65 Pulse Oximetry 98 98 97 Oxygen Delivery Me thod Room Air 05/15/24 17:12 05/15/24 17:15 05/15/24 17:30 Temperature Pulse Rate 78 69 Pulse Rate [Pulse Oximeter] Respiratory Rate Blood Pressure Blood Pressure [Ri ght Upper Arm] Pulse Oximetry 98 99 98 Oxygen Delivery Me thod 05/15/24 17:45 05/15/24 18:00 05/15/24 18:15 Temperature Pulse Rate 70 68 85 Pulse Rate [Pulse Oximeter] Respiratory Rate Blood Pressure Blood Pressure [Ri ght Upper Arm] Pulse Oximetry 98 98 97 Oxygen Delivery Me thod 05/15/24 18:30 05/15/24 18:37 05/15/24 18:45 Temperature Pulse Rate 67 67 74 Pulse Rate [Pulse Oximeter] Respiratory Rate Blood Pressure 110/66 Blood Pressure [Ri ght Upper Arm] Pulse Oximetry 97 98 99 Oxygen Delivery Me thod 05/15/24 19:02 Temperature Pulse Rate 70 Pulse Rate [Pulse Oximeter] Respiratory Rate Blood Pressure Blood Pressure [Ri ght Upper Arm] Pulse Oximetry 98 Oxygen Delivery Me thod Documenting provider has reviewed patient's vital signs: yes Course Course ED Course: Diagnostic considerations would include pulmonary embolism, acute coronary syndrome, congestive heart failure, pneumonia, pleural effusion, surgical complications such as abscess, retained gallstone, anemia among others. An EKG done on arrival shows by my review normal sinus rhythm, ventricular rate of 76. No acute ST segment changes. No S3 crease 3 T3. She is not tachycardic nor hypoxic. Blood pressure mildly low at 90 9/65, she is afebrile. She does not give symptoms that are strongly suggestive of pneumonia, given her young age and absence of other risk factors than smoking, as well as symptoms that have been ongoing for 5 days would doubt this represents acute coronary syndrome but will get a troponin, will get a BNP to evaluate for evidence of congestive heart paulie lure, D-dimer to screen for pulmonary embolism, CBC, metabolic panel. These are all pending. There is no evidence of bronchospasm, she is breathing easily and does not appear to need oxygen or other respiratory therapies at this time. Chest x-ray via my review looked pretty unremarkable, radiology read notes some chronic appearing bronchial thickening. She is a smoker, suspect this is related to chronic bronchitis. She has inhalers at home, discussed with her we could try a trial of prednisone as well. Otherwise her evaluation is unremarkable. Hemoglobin is 11 which is up slightly from previous, white count is normal, minimal left shift with 75% neutrophils. Her D-dimer is 0.37, metabolic panel is normal, LFTs are normal, CRP is less than 0.5. BNP is 36, no evidence of congestive heart failure. Lipase is 147, COVID RSV and influenza are negative. Point of care troponin is 0. If discussed with her that I think we have adequately ruled out all of the potentially dangerous causes for her symptoms. Chronic bronchitis may be playing a role, she may also have gastroesophageal reflux/esophagitis which may be contributing. She has medications prescribed for this already, has follow-up next week which I think is adequate unless she is feeling worse in which case she should return to the ER for re-evaluation. Vital Signs Vital signs: Initial Vital Signs Respiratory Effort Normal, Spontaneous, Non-Labored 05/15/24 16:39 Respiratory Depth Normal 05/15/24 16:39 Respiratory Pattern Normal 05/15/24 16:39 Vital Signs Temperature 98.6 F 05/15/24 16:40 Pulse Rate 77 05/15/24 16:40 Respiratory Rate 20 05/15/24 16:40 Blood Pressure 99/65 05/15/24 16:40 Pulse Oximetry 98 05/15/24 16:40 Oxygen Delivery Method Room Air 05/15/24 16:40 Temperature 98.6 F 05/15/24 16:40 Pulse Rate 70 05/15/24 19:02 Respiratory Rate 20 05/15/24 16:40 Blood Pressure 110/66 05/15/24 18:37 Pulse Oximetry 98 05/15/24 19:02 Oxygen Delivery Method Room Air 05/15/24 16:40 Medical Decision Making Lab Data Labs: Lab Results 05/15/24 05/15/24 Range/Units 17:13 17:20 WBC 9.91 (4.50-11.00) K/uL RBC 3.87 L (4.00-5.20) m/uL Hgb 11.0 L (12.0-16.0) gm/dL Hct 33.8 (33.0-51.0) % MCV 87 (80-100) fL MCH 28 (26-34) pg MCHC 33 (32-36) gm/dL RDW Coeff of Oscar 14.3 (11.5-15.5) % Plt Count 280 (140-440) K/uL Neut % (Auto) 75.6 H (42.0-72.0) % Lymph % (Auto) 13.6 L (20-44) % Door % (Auto) 8.1 (0.0-11.0) % Eos % (Auto) 2.3 (0.0-7.0) % Baso % (Auto) 0.2 (0.0-3.0) % Neut # (Auto) 7.50 H (1.7-7.0) K/uL Lymph # (Auto) 1.30 (0.90-2.90) K/uL Door # (Auto) 0.80 (0.00-0.90) K/UL Eos # (Auto) 0.23 (0.00-0.50) K/uL Baso # (Auto) 0.02 (0.00-0.30) K/uL Abs Immat Gran (auto) 0.02 (0.00-0.30) K/uL Imm/Tot Granulo (auto) 0.2 % D-Dimer Quant (PE/DVT) 0.37 (0.00-0.50) ug/ml Sodium 136 (135-149) mmol/L Potassium 3.9 (3.6-5.1) mmol/L Chloride 105 (96-114) mmol/L Carbon Dioxide 21 (20-32) mmol/L Anion Gap 10 (7-15) mEq/L BUN 15 (5-24) mg/dL Creatinine 0.4 L (0.5-1.5) mg/dL Estimated Creat Clear 203.20 Estimated GFR 131 ml/min Glucose 91 (60-115) mg/dL Calcium 9.3 (8.4-10.6) mg/dL Total Bilirubin < 0.1 L (0.1-1.5) mg/dL Direct Bilirubin 0.0 (0.0-0.5) mg/dL AST 19 (12-35) U/L ALT 11 (4-35) U/L Alkaline Phosphatase 56 (40-150) U/L C-Reactive Protein < 0.5 L (0.5-1.0) mg/dL NT-Pro-B Natriuret Pep 36 pg/mL Total Protein 6.9 (6.0-8.3) g/dL Albumin 4.3 (3.3-5.0) g/dL Lipase 147 (23-300) U/L SARS-CoV-2 (PCR) Negative SARS-CoV-2 (Negative) Influenza Type A (PCR) Negative PCR FLU A (Negative) Influenza Type B (PCR) Negative PCR FLU B (Negative) RSV (PCR) Negative PCR RSV (Negative) POC Troponin I 0.00 L (0.01-0.04) ng/ml Discharge Plan Discharge Clinical Impression: Shortness of breath Patient Disposition: Home, Self-Care Condition: Stable Instructions: Shortness of Breath (ED) Additional Instructions: Trial of prednisone as prescribed, continue to use inhalers as needed. Your workup here is reassuring, no evidence of pneumonia, blood clot, heart attack, or other worrisome cause for your symptoms. Follow-up as planned, continue current medications. Return at any time for significant worsening. Prescriptions: No Action gabapentin 100 mg capsule 100 mg PO TID PRN albuterol sulfate 90 mcg/actuation HFA aerosol inhaler 2 puff inhalation Q6H PRN (Reason: shortness of breath or wheezing) Qty: 6.7 0RF buspirone 5 mg tablet 5 mg PO BID PRN lorazepam 0.5 mg tablet 0.5 - 1 mg PO DAILY PRN trazodone 50 mg tablet 50 mg PO HS PRN sertraline 50 mg tablet 50 mg PO DAILY prazosin 1 mg capsule 1 mg PO HS PRN cetirizine [All Day Allergy (cetirizine)] 10 mg tablet 10 mg PO DAILY fluticasone propionate [24 Hour Allergy Relief] 50 mcg/actuation spray,suspension 1 spray intranasal BID PRN Rx Instructions: administer into each nostril multivitamin [Daily Multi-Vitamin] Tablet 1 tab PO DAILY hydrocodone-acetaminophen 5-325 mg tablet 1 tab PO Q6H PRN (Reason: pain) Qty: 14 0RF pantoprazole 40 mg tablet,delayed release (DR/EC) 40 mg PO DAILY Qty: 30 0RF pantoprazole 40 mg tablet,delayed release (DR/EC) 40 mg PO DAILY PRN ondansetron HCl 4 mg tablet 4 mg PO Q6-8H PRN epinephrine 0.3 mg/0.3 mL auto-injector 0.3 ml IM Q5-15M PRN Rx Instructions: do not exceed 3 doses per episode Follow Up/Referrals: Provider,Not a Local [Primary Care Provider] - Stand Alone Forms: [employer] Info Instructions
[2024-05-15 17:35] LABS: Basophils Absolute Auto 0.02 K/uL (0.00-0.30); Basophils Percent Auto 0.2 % (0.0-3.0); Eosinophils Absolute Auto 0.23 K/uL (0.00-0.50); Eosinophils Percent Auto 2.3 % (0.0-7.0); Hematocrit 33.8 % (33.0-51.0); Immature Granulocytes Abs Auto 0.02 K/uL (0.00-0.30); Immature Granulocytes Pct Auto 0.2 %; Lymphocytes Percent Auto 13.6 % (20-44); Mean Corpuscular HGB Conc 33 gm/dL (32-36); Mean Corpuscular Hemoglobin 28 pg (26-34); Mean Corpuscular Volume 87 fL (80-100); Monocytes Percent Auto 8.1 % (0.0-11.0); Neutrophils Percent Auto 75.6 % (42.0-72.0); Platelet Count* 280 K/uL (140-440); RDW Coefficient of Variation % 14.3 % (11.5-15.5); Red Blood Count 3.87 m/uL (4.00-5.20); White Blood Count* 9.91 K/uL (4.50-11.00)
[2024-05-15 17:47] LABS: Slide Review Reflex No
[2024-05-15 17:48] LABS: Albumin* 4.3 g/dL (3.3-5.0); Chloride* 105 mmol/L (96-114); Potassium* 3.9 mmol/L (3.6-5.1); Sodium* 136 mmol/L (135-149)
--- OUTSIDE RECORDS SUMMARY | 2024-05-15 17:48 | XMS_ITS | Encounter Summary ---
Author Organization [facility] Address [address] [place] [address] Care Team Providers Care Piano Case And Bench Assembler Name Role Phone No Ref-Primary, Physician Primary Care Provider Reason for Visit * Reason Comments Alcohol Intoxication Encounter Details Date Type Department Care Team (Late st Contact Info) Description 02/09/2024 3:41 AM CDT - 02/09/2024 6:34 AM CDT Emergency [facility] Emergency Dept [address] [place] [address] Agusto Johnson MD [facility] [address] [place] [address] Alcoholic intoxication without complication (H) Discharge Disposition: [...] 88 02/09/2024 3:50 AM CDT Temperature 36.6 C (97.8 F) 02/09/2024 3:52 AM CDT Respiratory Rate 20 02/09/2024 4:03 AM CDT [...] nerves or get rid of a hangover(eye wound care specialist)? If you answer yes to any of [...] help, contact: Your caregiver. Alcoholics Anonymous (AA). [facility] Intergroup: [phone] [facility] Central Office: [phone] A drug or alcohol rehabilitation program. You can get information on alcohol resources and groups by calling the number 244 or on any phone. Seek medical care [...] all mood altering chemicals. Please contact the sober support hotline ([phone]) as needed; phones are answered 24 hours a day, 7 days a week. To access substance use treatment you must have a comprehensive assessment completed to begin any treatment program. If uninsured, please contact your county of residence for eligibility screen to substance use disorder evaluation and treatment: [place] - [phone] [place] - [phone] [place] - [phone] [place] - [phone] [facility] [phone] [place] - [phone] [facility] [phone] [facility] [phone] If you have private insurance, call the customer service number on the back of your insurance card to find an in-network substance abuse use disorder assessment. The ideal provider will be a treatment facility, licensed in the [facility] [place]. Community AILEEN Evaluations: Clients may call their county for a full list of providers - Availability and services listed belo are subject to change, please call the provider to confirm [facility] [place], [address] *Please call the above number to schedule a comprehensive assessment for determination of level of care needs. In person and virtual appointments available Mon-Fri. [facility], [address], [address] Floor, [address], [place] [address] (next [facility]) Provides bridging services to people with Opiate Use Disorders (OUD) seeking care. This is a front door to Medication Assisted Treatments (MAT), ages 16+ Walk In hours: Sunday-Sunday 9:00am-3:00pm [facility] [phone] Walk in Assessments: Sun-Sunday 7a-1:45p [address] [facility], [address] [facility] Recovery - People [facility] Central Access [phone] [address] [place], [address] *by appointment only [place] (phone consultation available 15/01) Locations in: [place], [facility], and [place], [place] Belarusian virtual IOP [phone] or visit Nic.Envie de Fraises/LETICIA Also offers LGBTQ programming [facility] [phone] [address] [facility], [address] [place], [address] *Currently only offered via telehealth - call to set up an appointment [facility] [address] [place] [address], [address] [facility] For more information to to make a referral call: [phone] Walk-in on Fridays 9-11 a.m. [facility] [phone] [address] [place], [address] *available by appointments only [place] - [facility] specific [phone] [address] [place], [address] *available by appointment only [facility] [phone] [address] [place], [address] *walk in assessments available M-F starting at 7 am. [facility] Services Locations: [facility], [facility], and [place] *Walk in assessments availble M-F starting at 8 am -virtual only [facility] [phone] [address] [place] [address] [facility] Virtual + Locations: [facility], [place], [place], [facility], [place], [place], [place] *available by appointment only [facility] [phone] [address] [place], [address] [facility] ([facility]) [phone] [place], [address] *available by appointment [facility] [phone] [address] [place], [address] *walk ins available M-TH from 02-25 [facility] program: [phone] [place], [address] [place] [phone] Same day substance use disorder assessments are available Sunday - Sunday, via walk-in or by appointment at the [place] location. [address] [facility], [address], [place] [address] [facility] - adolescent and adult SUDs services [phone] Offer services Sunday through Sunday, as well as evening hours Sunday through . Normally, afirst appointment will be scheduled within one week [email or web address] Locations all over [place] If you are intoxicated, you may be required to detox at a detox facility before starting treatment.The following are detox facilities that you can self present to. All detox facilities are able to help you complete an assessment prior to discharge if you choose: [facility]: Arrive at a [facility] for immediate medical evaluation [facility]: [address] [place], [address]. [phone] [facility]: [address] [place], [address] [facility] ([facility]): [address] [place], [place], [address] [facility]: [address] [place], [address], Ways to help cope with sobriety: -- Take prescribed medicines as scheduled -- Keep follow-up appointments -- Talk to others about your concerns -- Get regular exercise -- Practice deep breathing skills -- Eat a healthy diet -- Use community resources, including hotline numbers, [facility] crisis and support meetings -- Stay sober [...] achieve them throughout the day. Free Resources: [facility] ([facility]) [facility] connects people seeking recovery to resources that help foster and sustain long-term recovery. Whether you are seeking resources for treatment, transportation, housing, job training, education, health care or other pathways to recovery, [facility] is a great place to start. . www.[employer].Envie de Fraises (Great listing of all types of recovery and non-recovery related resources) Alcoholics Anonymous Phone: 6-067-NBKNSJS Website: HTTP://WWW.AA.ORG/ AA [place] (413-603-0718 or http://aaServo Software.org) AA [place] (687-613-0792 or www.aastpaul.org) Narcotics Anonymous Website: www.CoreDial.Indelsul. [employer] [address], [address], [place], [place], Drop-in Hours: Sunday-Sunday 9-11:30 am. By appointment at other times. Provides: [employer] is a drop-in center on the [facility] side [facility] that provides a safe space for [...] needs may be eligible for enrollment into [employer]'s case management program. Clients and trimming caser work together to access benefits, treatment, health care, correction, and external housing resources. documented in this [...] AM CDT Pt's mother here to picking machine operator helper pt. Pt's mother agreeable to taking patient [...] (H) documented in this encounter Care Teams Piano Case And Bench Assembler Relationship Specialty Start Date End Date No Ref-Primary, Physician PCP - General 02/09/24 documented as of this encounter
--- OUTSIDE RECORDS SUMMARY | 2024-05-15 17:48 | XMS_ITS | Clinical Summary ---
Author Organization [facility] Address [address] [place] [address] Care Team Providers Care Stripper And Taper Name Role Phone No Ref-Primary, Physician Primary [...] patient's age to complete this topic Insurance BCBS OUT OF STATE BCBS OUT OF STATE Care Teams Stripper And Taper Relationship Specialty Start Date End Date No Ref-Primary, Physician PCP - General 02/09/24
--- OUTSIDE RECORDS SUMMARY | 2024-05-15 17:48 | XMS_ITS | Encounter Summary ---
Author Organization [facility] Address [address] [place] [address] Care Team Providers Care Single Spindle Screw Machine Operator Name Role Phone No Ref-Primary, Physician [...] on filedocumented in this encounter Care Teams Single Spindle Screw Machine Operator Relationship Specialty Start Date End Date No Ref-Primary, Physician PCP - General 02/09/24 documented as of this encounter
--- OUTSIDE RECORDS SUMMARY | 2024-05-15 17:48 | XMS_ITS | Referral Summary ---
Author Organization [facility] Address [address] [place] [address] Care Team Providers Care Lawn Mower Mechanic Name Role Phone No Ref-Primary, Physician Primary [...] on file Insurance BCBS OUT OF STATE [facility] OUT OF STATE Care Teams Lawn Mower Mechanic Relationship Specialty Start Date End Date No Ref-Primary, Physician PCP - General 02/09/24
[2024-05-15 17:50] LABS: Creatinine* 0.4 mg/dL (0.5-1.5); Estimated Glomerular Filt Rate 131 ml/min
[2024-05-15 17:51] LABS: Alanine Aminotransferase* 11 U/L (4-35); Alkaline Phosphatase* 56 U/L (40-150); Anion Gap 10 mEq/L (7-15); Aspartate Amino Transferase* 19 U/L (12-35); Bilirubin Total* < 0.1 mg/dL (0.1-1.5); Blood Urea Nitrogen* 15 mg/dL (5-24); Carbon Dioxide* 21 mmol/L (20-32); Glucose* 91 mg/dL (60-115); Lipase* 147 U/L (23-300); Total Protein* 6.9 g/dL (6.0-8.3)
[2024-05-15 17:52] LABS: Calcium* 9.3 mg/dL (8.4-10.6)
[2024-05-15 17:54] LABS: C Reactive Protein* < 0.5 mg/dL (0.5-1.0)
[2024-05-15 18:05] LABS: NT Pro B Type NatriureticPept* 36 pg/mL
[2024-05-15 18:14] LABS: PCR FLU A Negative PCR FLU A (Negative); PCR FLU B Negative PCR FLU B (Negative); PCR RSV Negative PCR RSV (Negative); SARS PCR* Negative SARS-CoV-2 (Negative)
[2024-05-15 18:22] LABS: D Dimer Quantitative* 0.37 ug/ml (0.00-0.50)
--- NOTE | 2024-05-15 18:48 | CRLHL7_ITS ---
For Patients: As a result of the Cures Act, medical imaging exams and procedure reports are released immediately into your electronic medical record. You may view this report before your referring provider. If you have questions, please contact your health care provider. INDICATION: Shortness of breath TECHNIQUE: Chest 2 views. COMPARISON: None. FINDINGS: Cardiovascular and mediastinum: Heart size is normal. Unremarkable mediastinum. Lungs and pleural spaces: Lungs are clear. Mild bronchial wall thickening. No sign of pleural effusion. No pneumothorax. Bones and soft tissues: No significant findings. IMPRESSION: Mild bronchial wall thickening, which can be seen in chronic small airways disease. Dictated by Tori Guo MD @ 05/15/2024 7:35:39 PM (Electronically Signed)
== END 2024-05-15 19:55 | disposition home or self-care (01) ==
PROVIDERS: Emergency Provider Emergency Medicine
DX: R06.02 Shortness of breath (principal)
CPT/HCPCS: 36415; 71046; 80048; 80076; 83690; 83880; 84484; 85025; 85379; 86140; 87631; 93005; 94761; 99284

== ENCOUNTER 2024-06-02 11:52 | Outpatient (CLI) | payer BC, SELFPAY ==
--- OUTSIDE RECORDS SUMMARY | 2024-06-02 11:55 | XMS_ITS | Referral Summary ---
Author Organization [facility] Address [address] [place] [address] Care Team Providers Care Counter Intelligence Technician Name Role Phone No Ref-Primary, Physician [...] Plan of Treatment Not on file Insurance BC OUT OF STATE [facility] OUT OF STATE Care Teams Counter Intelligence Technician Relationship Specialty Start Date End Date No Ref-Primary, Physician PCP - General 02/09/24
--- OUTSIDE RECORDS SUMMARY | 2024-06-02 11:55 | XMS_ITS | Clinical Summary ---
Author Organization [place] Address [address] [place] [id number] Care Team Providers Care Customer Engineer Name Role Phone No Ref-Primary, Physician Primary [...] STATE [employer] OUT OF STATE Care Teams Customer Engineer Relationship Specialty Start Date End Date No Ref-Primary, Physician PCP - General 02/09/24
--- NOTE | 2024-06-02 12:52 | W.ANESCHARGE ---
Anesthesia Charges Start Date/Time Anesthesia Start Date: 06/02/24 Anesthesia Start Time: 12:34 Stop Date/Time Anesthesia Stop Date: 06/02/24 Anesthesia Stop Time: 12:49
--- NOTE | 2024-06-02 13:54 | W.ANESCHARGE ---
Anesthesia Charges Start Date/Time Anesthesia Start Date: 06/02/24 Anesthesia Start Time: 12:34 Stop Date/Time Anesthesia Stop Date: 06/02/24 Anesthesia Stop Time: 12:49
== END 2024-06-02 11:53 | disposition home or self-care (01) ==
LOC: OP CLINIC 11:53
PROVIDERS: Visit Provider Surgery
DX: R10.10 Upper abdominal pain, unspecified (principal); Z98.84 Bariatric surgery status
CPT/HCPCS: 00731; 43239; 88305; J2704; J3490